=== PATIENT | female | born 2000 | race Hispanic/Latino ===

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

== ENCOUNTER 2022-08-05 13:47 | Emergency (ER) | payer OTHER, SELFPAY ==
--- NOTE | ~2022-08-05 | CT_ITS ---
EXAMINATION: CT abdomen pelvis w con DATE: 08/05/2022 15:12 INDICATION: Mid abdominal pain, nausea, vomiting, diarrhea TECHNIQUE: Computed tomography (CT) of the abdomen and pelvis was performed with 100 CC Omnipaque 350 intravenous contrast. Automated exposure control and iterative reconstruction technique were employe d. Exam dose: 248.49 mGy-cm total exam DLP. COMPARISON: None. FINDINGS: The lung bases are clear. Normal heart size. No pericardial or pleural effusion. The liver, spleen, gallbladder, bile ducts, pancreas, pancreatic duct, and adrenal glands and kidneys appear normal. No urinary tract calculus or hydroureteronephrosis. The uterus, adnexal areas and uri nary bladder are unremarkable. Normal caliber of the abdominal aorta. No intraperitoneal or retroperitoneal or pelvic mass lesion or adenopathy or ascites. Normal appendix. There are fluid levels in the small and large bowel without evidence of bowel wall t hickening or abnormal dilatation, pneumatosis or intraperitoneal free air. Included skeletal structures are unremarkable. IMPRESSION: Fluid levels of small bowel and large bowel suggesting enterocolitis Normal appendix Reviewed, dictated and finalized at Location A. Reviewed, dictated and finalized at location B. IMPRESSION: Fluid levels of small bowel and large bowel suggesting enterocolit is Normal appendix
[2022-08-05 13:49] VITALS: BP 126/77; PULSE 91; RESP 16; TEMP 36.3; O2SAT 100
[2022-08-05 14:02] LABS: Basophils Absolute Auto 0.1 K/mm3 (0.0-0.1); Basophils Percent Auto 0.9 % (0.2-1.2); Eosinophils Absolute Auto 0.4 K/mm3 (0-0.3); Eosinophils Percent Auto 5.9 % (0-4.4); Hemoglobin 11.6 g/dL (12.0-15.0); Immature Granulocyte Absolute 0.01 K/mm3 (0.00-0.031); Immature Granulocyte Percent A 0.2 % (0-0.5); Lymphocytes Absolute Auto 2.67 K/mm3 (0.9-3.2); Lymphocytes Percent Auto 41.3 % (18.3-44.2); Mean Corpuscular HGB Conc 31.4 g/dl (32-36); Mean Corpuscular Hemoglobin 24.1 pg (26-34); Mean Corpuscular Volume 76.9 fl (80-100); Mean Platelet Volume 9.9 fl (7.4-10.4); Monocytes Absolute Auto 0.4 K/mm3 (0.1-0.6); Monocytes Percent Auto 6.6 % (2.6-8.5); Neutrophils Absolute Auto 2.9 K/mm3 (1.3-6.7); Neutrophils Percent Auto 45.1 % (45.5-73.1); Platelet Count Result 334 k/mm3 (150-375); Red Blood Count 4.81 M/mm3 (4.2-5.4); Red Cell Distribution Width 13.8 % (11.5-14.5); White Blood Count 6.5 K/mm3 (4.5-10.0)
[2022-08-05 14:16] LABS: Alanine Aminotransferase 20 U/L (6-35); Albumin Level 4.8 g/dL (3.7-5.6); Alkaline Phosphatase 62 U/L (45-116); Anion Gap 10 mmol/L (8-16); Aspartate Amino Transferase 30 U/L (14-36); Bilirubin,Total 0.5 mg/dL (0.2-1.3); Blood Urea Nitrogen 8 mg/dL (8-21); Calcium 9.6 mg/dL (8.9-10.7); Carbon Dioxide 23 mmol/L (22-30); Chloride 104 mmol/L (98-107); Estimated CRCL calculation 89 ml/min; Estimated Glomerular Filt Rate > 60; Glucose 93 mg/dL (65-110); Lipase 57 U/L (23-300); Potassium 3.7 mmol/L (3.4-5.0); Sodium 137 mmol/L (134-143)
--- NOTE | 2022-08-05 14:25 | ED.ABDPAIN ---
HPI - Abdominal Pain General Chief Complaint: Abdominal Pain Stated Complaint: abd pain Time Seen by Provider: 08/05/22 14:15 History of Present Illness HPI narrative: This is a 21-year-old female presents to the ED with chief complaint of periumbilical abdominal pain radiating to the right lower quadrant x1 to 2 hours. She reports nausea/vomiting/diarrhea for the past hour as well. No known sick contacts. Patient does note that the pain becomes generalized at times as well. Reports about 3 episodes of vomiting and a couple episodes of diarrhea. Denies hematemesis or bloody stools. Denies chest pain, shortness of breath, fevers. No past abdominal surgical Hx Related Data Home Medications Medication Instructions Recorded Confirmed norethindrone 1 mg-ethinyl tablet 07/05/20 estradiol 20 mcg (21)-iron 75 mg (7) tablet Allergies Allergy/AdvReac Type Severity Reaction Status Date / Time No Known Allergies Allergy Verified 04/09/21 05:47 Review of Systems Review of Systems: CONSTITUTIONAL: Denies fever, chills, or sweats. EYES: Denies visual changes, redness, or discharge. ENT: Denies rhinorrhea, congestion, sore throat, or otalgia. CARDIOVASCULAR: Denies chest pain, palpitations, or edema. RESPIRATORY: Denies cough or dyspnea. GASTROINTESTINAL: Endorses abdominal pain, nausea, vomiting, and diarrhea. Denies hematemesis or bloody stools. GENITOURINARY: Denies dysuria or hematuria. SKIN: Denies rash or itching. MUSCULOSKELETAL: Denies back pain, joint pain, or myalgia. NEUROLOGIC: Denies headache, numbness, dizziness, or weakness. PSYCHIATRIC: Denies anxiety or depression. PMFSH Past Medical History Medical History Benign neoplasm of foot surgically excised at age 8 years. Surgical History Surgical History H/O foot surgery Social History Social History Smoking status: Never smoker Substance use: never Exam Narrative: GENERAL: Well-appearing, well-nourished, and in no acute distress. HEAD: Normocephalic, atraumatic. EYES: PERRLA and EOMI. ENT: Nares clear, no rhinorrhea or epistaxis. Mucous membranes moist. Oropharynx without tonsillar hypertrophy exudate or other lesions. NECK: Supple. No adenopathy or masses. CHEST: No respiratory distress. Clear to auscultation. No wheezes rales or rhonchi HEART: Regular rate and rhythm. No murmur heard. Normal peripheral pulses. ABDOMEN: Diffuse tenderness, Somewhat worse in the right lower quadrant. Soft, nondistended, normal active bowel sounds. Negative peritoneal signs. Negative Muhammad sign EXTREMITIES: Normal range of motion. No edema. SKIN: Warm, dry, no rash. NEURO: Alert and oriented x3. No focal deficits. PSYCH: Normal mood and affect. Course Course Emergency Course: reeval: pt feeling much better after pain meds, zofran and fluids Vital Signs Vital signs: Vital Signs Temperature 97.4 F L 08/05/22 13:49 Pulse Rate 91 08/05/22 13:49 Respiratory Rate 16 08/05/22 13:49 Blood Pressure 126/77 08/05/22 13:49 Pulse Oximetry 100 08/05/22 13:49 Oxygen Delivery Room Air 08/05/22 13:49 Temperature 98.2 F 08/05/22 15:57 Pulse Rate 74 08/05/22 15:57 Respiratory Rate 16 08/05/22 15:57 Blood Pressure 110/72 08/05/22 15:57 Pulse Oximetry 100 08/05/22 15:57 Oxygen Delivery Room Air 08/05/22 13:49 MDM - Abdominal Pain MDM Narrative Medical decision making narrative: This is a 21-year-old female presents the ED with chief complaint of abdominal pain and N/V/D beginning just prior to arrival. Patient did complain of some migrating periumbilical to right lower quadrant pain on initial interview. Exam reveals generalized tenderness with moderate right lower quadrant tenderness. DDx of gastroenteritis, colitis, appendic
[2022-08-05] MEDS: ONDANSETRON INJ 4 MG/2 ML VIAL IV PUSH (14:54)
[2022-08-05] MEDS: MORPHINE SULFATE (*CRX) 4 MG/ML INJ IV PUSH (14:54)
[2022-08-05] MEDS: SODIUM CHLORIDE 0.9% IV 1,000 ML 999 ML IV CONT (14:54)
[2022-08-05 15:38] LABS: Appearance Urine Clear (Clear); Bacteria Urine 3+ /hpf; Bilirubin Urine Negative (Negative); Blood Urine Negative (Negative); Color Urine Yellow (Yellow); Glucose Urine UA Negative (Negative); Ketones Urine Negative (Negative); Leukocyte Esterase Ur 1+ LEU/UL (Negative); Nitrate Urine Negative (Negative); Non Pathogenic Casts 0-2; Protein Urine Negative (Negative); RBC Urine 0-2 /hpf (0-2); Specific Grav Ur 1.021 (1.001-1.035); Squamous Epithelial Cell Urine Many /hpf (Few); Urobilinogen Urine 0.2 mg/dL (<2.0); pH Urine 6.5 (5.0-9.0)
[2022-08-05 15:40] LABS: Add Urine Microscopic? YES
[2022-08-05 15:57] VITALS: BP 110/72; PULSE 74; RESP 16; TEMP 36.8; O2SAT 100
== END 2022-08-05 16:01 | disposition home or self-care (01) ==
PROVIDERS: Emergency Medicine; Emergency Provider Physician Assistant
DX: K52.9 Noninfective gastroenteritis and colitis, unspecified (principal)
CPT/HCPCS: 36415; 74177; 80053; 81001; 81025; 83690; 85025; 87086; 96361; 96374; 96375; 99284; J2270; J2405; J7030; Q9967

== ENCOUNTER 2023-06-03 13:48 | Outpatient (CLI) | payer BC, SELFPAY ==
--- NOTE | ~2023-06-03 | XR_ITS ---
EXAMINATION: XR chest 2V 06/03/2023 14:12 INDICATION: Generalized hyperhidrosis PROCEDURE: 2 view chest COMPARISON: Comparison to multiple prior studies sequentially, with oldest reviewed study dated 06/04. FINDINGS: The lungs are clear. The cardiomediastinal silhouette is within normal limits. There are no pleural effusions. There is no pneumothorax suspected. IMPRESSION: 1: NO ACUTE CARDIOPULMONARY DISEASE. Reviewed, dictated and finalized at location L. AL DISPLAY MANAGER
--- NOTE | ~2023-06-03 | XR_ITS ---
EXAMINATION: XR sinus min 3V DATE: 06/03/2023 14:12 INDICATION: Fever, unspecified. Right-sided sinus pain. TECHNIQUE: 5 views of the paranasal sinuses were obtained. COMPARISON: None. FINDINGS: There is rightward deviation of the nasal septum. No fracture. There is mucosal thickening in right maxillary sinus. IMPRESSION: 1. Mucosal thickening in right maxillary sinus. 2. Rightward deviation of the nasal septum. Reviewed, dictated and finalized at location E. ALT DAUBER
--- NOTE | ~2023-06-03 | XR_ITS ---
XR abdomen/kub 1V 06/03/2023 14:13 INDICATION: Fever. Diarrhea. TECHNIQUE: KUB COMPARISON: None FINDINGS: Bowel gas pattern is normal. Bowel gas pattern is nonobstructive. There is no evidence of f ree air, mass, organomegaly, ascites or obstruction. No abnormal calculi are seen. The bones appear intact. IMPRESSION: 1: No acute abdominal abnormality identified. Reviewed, dictated and finalized at location L. RHANGER
== END 2023-06-03 13:49 | disposition home or self-care (01) ==
PROVIDERS: PCP Family Medicine; Visit Provider Family Medicine
DX: R61 Generalized hyperhidrosis (principal); R50.9 Fever, unspecified; R19.7 Diarrhea, unspecified; J34.2 Deviated nasal septum
CPT/HCPCS: 70220; 71046; 74018

== ENCOUNTER 2023-07-07 01:45 | Day surgery (SDC) | payer BC, SELFPAY ==
[2023-06-15 10:25] VITALS: BMI 21.2
--- NOTE | 2023-07-05 11:34 | PC.NURSE ---
Patient called regarding upcoming procedure. Reviewed preop instructions, appointment times, and procedure prep.
[2023-07-07 11:40] VITALS: BP 114/78; PULSE 102; RESP 18; TEMP 36.3; O2SAT 100; BMI 20.9
[2023-07-07] MEDS: LACTATED RINGERS 1,000 ML 150 ML IV CONT (11:55)
--- NOTE | 2023-07-07 12:34 | WPDANESEPPF ---
Anes - Initial Pre Proc Eval Procedure: Operation Date: 07/07/23 13:00 Proposed Procedures p Colonoscopy - Cristopher Geronimo MD Date/Time: 07/07/23 12:34 Surgeon: Cristopher Geronimo MD Pre Op Diagnosis: abdominal pain,anemia,melena Patient Data Age: 22 Gender: F Height: 1.65 m Weight: 57.1 kg Last Vital Signs Temp 36.3 C L 07/07/23 11:40 Pulse 102 H 07/07/23 11:40 Resp 18 07/07/23 11:40 BP 114/78 07/07/23 11:40 Pulse Ox 100 07/07/23 11:40 O2 Del Method Room Air 07/07/23 11:40 Allergies Allergy/AdvReac Type Severity Reaction Status Date / Time No Known Allergies Allergy Verified 07/07/23 11:45 Home Medications Medication Instructions Recorded Confirmed Type norethindrone 1 mg-ethinyl 1 tablet PO DAILY 07/05/20 07/07/23 History estradiol 20 mcg (21)-iron 75 mg (7) tablet fexofenadine 60 mg-pseudoephedrine 1 tablet PO Q12H PRN sinus 06/04/23 07/07/23 Rx ER 120 mg tablet,ext.release,12 hr symptoms #30 tabs (Darlene-D 12 Hour) Patient hx anesthesia problems: none Family hx anesthesia problems: none Results Review: All pre-operative results and documents have been reviewed as part of the pre-operative evaluation. [facility] Past Medical History Medical History Benign neoplasm of foot surgically excised at age 8 years. Surgical History Surgical History H/O foot surgery Social History Social History Social History: Single Smoking status: Never smoker Second hand tobacco smoke exposure: No Alcohol intake: never Substance use: never Substance use type: does not use Do You Feel Safe in your Home?: Yes Lack of Transportation: No Lack of Food: Never True Current Housing: I Have Housing Concerned About Future Housing: No Difficulty Paying Gas/Electric Bills: No Difficulty Paying for Meds: No Currently Unemployed: No Education: Don't Know Difficulty w/ Childcare or Family Care: No Living arrangements: with family Occupation/Education: student Additional occupation/education comments: Pt goes to school full-time. Gender identity (if verbalized by the patient): Female Sexual Orientation (if Verbalized by the Patient): Straight or Heterosexual Anes - Eval Final PreProcedure Day of Procedure 07/07/23 12:34 Patient weight: normal Heart: regular rate and rhythm Lungs: clear to auscultation Airway: Mallampati scale class 1 Neurological: alert and oriented Last oral intake: >/= 8 hours ASA classification: I Emergent: no Anesthetic plan: proceed Anesthesia type and monitoring: general GIVS and standard monitoring Results Review: All pre-operative results and documents have been reviewed as part of the pre-operative evaluation. Informed Consent: The patient's anesthetic plan and its attendant risks and benefits were discussed with the patient/family/POA. Questions were solicited and answers provided to the satisfaction of the patient/family/POA.
--- NOTE | 2023-07-07 12:56 | PM.HPGS ---
History of Present Illness History of Present Illness Consent: Risks, benefits, and alternatives have been discussed and questions answered. Patient agrees to proceed with procedure. Chief complaint: abdominal pain,anemia,melena Narrative: Giacomo Granados is a 22 year old female with 2 months of diarrhea, never had colonoscopy Review of Systems Constitutional: Constitutional: Denies headache(s) and Denies weakness Eyes: Eyes: Denies blurry vision ENT: Reports Normal hearing present, Denies headache(s) and Denies neck pain Cardiovascular: Cardiovascular: Denies chest pain and Denies dyspnea Respiratory: Respiratory: Denies dyspnea Gastrointestinal: Gastrointestinal: Reports no additional gastrointestinal complaints Genitourinary: Genitourinary: Denies dysuria Musculoskeletal: Musculoskeletal: Denies neck pain Integumentary/Breasts: Skin/Breast: Denies dry skin Neurologic: Reports Normal hearing present, Denies headache(s) and Denies weakness Psychiatric: Psychiatric: Denies anxiety Endocrine: Endocrine: Denies change in body appearance Hematologic/Lymphatic: Hematologic/Lymphatic: Denies easy bleeding Allergic/Immunologic: Allergic/Immunologic: Denies urticaria PMFSH Past Medical History Medical History Benign neoplasm of foot surgically excised at age 8 years. Surgical History Surgical History H/O foot surgery Social History Social History Social History: Single Smoking status: Never smoker Second hand tobacco smoke exposure: No Alcohol intake: never Substance use: never Substance use type: does not use Do You Feel Safe in your Home?: Yes Lack of Transportation: No Lack of Food: Never True Current Housing: I Have Housing Concerned About Future Housing: No Difficulty Paying Gas/Electric Bills: No Difficulty Paying for Meds: No Currently Unemployed: No Education: Don't Know Difficulty w/ Childcare or Family Care: No Living arrangements: with family Occupation/Education: student Additional occupation/education comments: Pt goes to school full-time. Gender identity (if verbalized by the patient): Female Sexual Orientation (if Verbalized by the Patient): Straight or Heterosexual Meds Home Medications and Allergies Home Medications Medication Instructions Recorded Confirmed Type norethindrone 1 mg-ethinyl 1 tablet PO DAILY 07/05/20 07/07/23 History estradiol 20 mcg (21)-iron 75 mg (7) tablet fexofenadine 60 mg-pseudoephedrine 1 tablet PO Q12H PRN sinus 06/04/23 07/07/23 Rx ER 120 mg tablet,ext.release,12 hr symptoms #30 tabs (Darlene-D 12 Hour) Allergies Allergy/AdvReac Type Severity Reaction Status Date / Time No Known Allergies Allergy Verified 07/07/23 11:45 Vital Signs Vital Signs - 24 hr 07/07/23 11:40 Temperature 97.3 F L Pulse Rate 102 H Respiratory Rate 18 Blood Pressure 114/78 Pulse Oximetry 100 Oxygen Delivery Room Air Exam Const: General: comfortable and no acute distress HENMT: Face/Nose/Sinus: Normal nares present Eyes: General: appearance normal, both eyes and all related structures Neck: Neck: no JVD Resp: Auscultation: clear to auscultation bilaterally Cardio: Rate: regular rate Rhythm: regular rhythm GI: Inspection: non-distended GI Palp: Yes Soft to palpation Skin: General skin exam: normal color Neuro: General: gait normal Speech: normal speech Extrem: General: normal to inspection Psych: Mental Status: mental status grossly normal Assessment and Plan Assessment and plan (1) Diarrhea: Qualifiers: Diarrhea type: unspecified type Qualified Code(s): R19.7 - Diarrhea, unspecified Code(s): R19.7 - Diarrhea, unspecified Status: Acute Assessment and Plan: colonoscopy, consid
[2023-07-07 13:14] VITALS: BP 106/68; PULSE 97; RESP 24; O2SAT 100
[2023-07-07 13:24] VITALS: BP 109/72; PULSE 97; RESP 24; O2SAT 100
[2023-07-07 13:34] VITALS: BP 111/68; PULSE 77; RESP 21; O2SAT 100
== END 2023-07-07 13:39 | disposition home or self-care (01) ==
PROVIDERS: PCP Family Medicine; Visit Provider Internal Medicine Gastroenterology
PROC: 0DJD8ZZ Inspection of Lower Intestinal Tract, Via Natural or Artificial Opening Endoscopic (ICD-10-PCS; CPT 45378; principal; 2023-07-07 13:00)
DX: K63.89 Other specified diseases of intestine (principal)
CPT/HCPCS: 45380; 88305; J2704; J7120

== ENCOUNTER 2023-09-08 11:11 | Outpatient (CLI) | payer BC, SELFPAY ==
[2023-09-08 11:35] LABS: Basophils Percent Auto 0.3 % (0.2-1.2); Eosinophils Percent Auto 0.3 % (0-4.4); Hematocrit 36.9 % (37.0-47.0); Hemoglobin 11.4 g/dL (12.0-15.0); Immature Granulocyte Absolute 0.05 K/mm3 (0.00-0.031); Immature Granulocyte Percent A 0.4 % (0-0.5); Lymphocytes Absolute Auto 0.93 K/mm3 (0.9-3.2); Lymphocytes Percent Auto 7.9 % (18.3-44.2); Mean Corpuscular HGB Conc 30.9 g/dl (32-36); Mean Corpuscular Hemoglobin 23.4 pg (26-34); Mean Corpuscular Volume 75.8 fl (80-100); Mean Platelet Volume 9.9 fl (7.4-10.4); Monocytes Absolute Auto 0.8 K/mm3 (0.1-0.6); Monocytes Percent Auto 6.8 % (2.6-8.5); Neutrophils Absolute Auto 9.9 K/mm3 (1.3-6.7); Neutrophils Percent Auto 84.3 % (45.5-73.1); Platelet Count Result 208 k/mm3 (150-375); Red Blood Count 4.87 M/mm3 (4.2-5.4); Red Cell Distribution Width 15.2 % (11.5-14.5); White Blood Count 11.8 K/mm3 (4.5-10.0)
[2023-09-08 11:46] LABS: Anisocytosis 1+; Hypochromasia 1+; Microcytosis 1+ (NORMAL); Platelet Estimate Adequate (Adequate); Schistocytes None Seen
[2023-09-08 16:42] LABS: Iron 55 ug/dL (37-170)
[2023-09-08 16:49] LABS: Alanine Aminotransferase 16 U/L (6-35); Albumin Level 4.7 g/dL (3.5-5.1); Alkaline Phosphatase 57 U/L (38-126); Anion Gap 11 mmol/L (4-12); Aspartate Amino Transferase 24 U/L (14-36); Bilirubin,Total 0.4 mg/dL (0.2-1.3); Blood Urea Nitrogen 7 mg/dL (7-17); Calcium 9.6 mg/dL (8.4-10.2); Carbon Dioxide 21 mmol/L (22-30); Chloride 104 mmol/L (98-107); Estimated Glomerular Filt Rate > 60; Glucose 97 mg/dL (65-110); Lactate Dehydrogenase 156 U/L (120-246); Potassium 3.7 mmol/L (3.4-5.0); Sodium 136 mmol/L (137-145)
[2023-09-08 16:58] LABS: Percent Iron Saturation 11 % (20-50)
[2023-09-08 17:16] LABS: Ferritin 7.39 ng/mL (6.24-137)
[2023-09-08 17:53] LABS: Folic Acid 3.1 ng/mL (2.76->20)
[2023-09-13 03:03] LABS: Methylmalonic Acid 104 nmol/L (87-318)
[2023-09-14 14:48] LABS: Soluble Transferrin Receptor 1.61 mg/L (0.76-1.76)
== END 2023-09-08 11:12 | disposition home or self-care (01) ==
LOC: ANHLAB 11:14
PROVIDERS: Nurse Practitioner Family; PCP Family Medicine; Visit Provider Internal Medicine Hematology & Oncology
DX: D50.9 Iron deficiency anemia, unspecified (principal)
CPT/HCPCS: 36415; 80053; 82607; 82728; 82746; 83540; 83550; 83615; 83921; 84238; 85025

== ENCOUNTER 2023-09-13 13:24 | Outpatient (CLI) | payer BC, SELFPAY ==
[2023-09-13 21:07] LABS: Influenza A QL RT-PCR Negative (Negative); Influenza B QL RT-PCR Negative (Negative); SARS-CoV-2 RNA PCR Negative (Negative)
== END 2023-09-13 13:25 | disposition home or self-care (01) ==
LOC: ANHLAB 13:26
PROVIDERS: PCP Family Medicine; Visit Provider Physician Assistant
DX: J02.9 Acute pharyngitis, unspecified (principal); Z20.822 Contact with and (suspected) exposure to COVID-19
CPT/HCPCS: 87636

== ENCOUNTER 2023-09-28 00:14 | Day surgery (SDC) | payer BC, SELFPAY ==
[2023-09-14 12:56] VITALS: BMI 21.5
--- NOTE | 2023-09-28 12:59 | P.PNAN_ITS ---
Anes - Initial Pre Proc Eval Procedure: Operation Date: 09/28/23 14:00 Proposed Procedures p Esophagogastroduodenoscopy - Cristopher Geronimo MD Date/Time: 09/28/23 12:59 Surgeon: Cristopher Geronimo MD Pre Op Diagnosis: Anemia, Diarrhea Patient Data Age: 22 Gender: F Height: 1.63 m Weight: 57 kg Allergies Allergy/AdvReac Type Severity Reaction Status Date / Time No Known Allergies Allergy Verified 09/20/23 13:00 Home Medications Medication Instructions Recorded Confirmed Type norethindrone 1 mg-ethinyl 1 tablet PO DAILY 07/05/20 09/20/23 History estradiol 20 mcg (21)-iron 75 mg (7) tablet fexofenadine 60 mg-pseudoephedrine 1 tablet PO Q12H PRN sinus 06/04/23 09/20/23 Rx ER 120 mg tablet,ext.release,12 hr symptoms #30 tabs (Darlene-D 12 Hour) colestipol 1 gram tablet 1 g PO BID 1 month #60 tabs 09/02/23 09/20/23 Rx amoxicillin 875 mg-potassium 1 tablet PO BID #20 tabs 09/14/23 09/20/23 Rx clavulanate 125 mg tablet dexamethasone 4 mg tablet 4 mg PO BID #6 tabs 09/14/23 09/20/23 Rx ferrous sulfate 325 mg (65 mg 325 mg PO DAILY 09/14/23 09/20/23 History iron) tablet (FeroSul) Patient hx anesthesia problems: none Family hx anesthesia problems: none Results Review: All pre-operative results and documents have been reviewed as part of the pre- operative evaluation. [facility] Past Medical History Medical History Benign neoplasm of foot surgically excised at age 8 years. Celiac disease Surgical History Surgical History H/O foot surgery Social History Social History Social History: Single Smoking status: Never smoker Second hand tobacco smoke exposure: No Alcohol intake: never Substance use: never Substance use type: does not use Do You Feel Safe in your Home?: Yes Lack of Transportation: No Lack of Food: Never True Current Housing: I Have Housing Concerned About Future Housing: No Difficulty Paying Gas/Electric Bills: No Difficulty Paying for Meds: No Currently Unemployed: No Education: Don't Know Difficulty w/ Childcare or Family Care: No Living arrangements: with family Occupation/Education: student Additional occupation/education comments: Pt goes to school full-time. Gender identity (if verbalized by the patient): Female Sexual Orientation (if Verbalized by the Patient): Straight or Heterosexual Spiritual care concerns: No Anes - Eval Final PreProcedure Day of Procedure 09/28/23 12:59 Patient weight: normal Heart: regular rate and rhythm Lungs: clear to auscultation Airway: Mallampati scale class II Neurological: alert and oriented Last oral intake: >/= 8 hours ASA classification: II Emergent: no Anesthetic plan: proceed Anesthesia type and monitoring: general GIVS and standard monitoring Results Review: All pre-operative results and documents have been reviewed as part of the pre- operative evaluation. Informed Consent: The patient's anesthetic plan and its attendant risks and benefits were discussed with the patient/family/POA. Questions were solicited and answers provided to the satisfaction of the patient/family/P
[2023-09-28 13:01] VITALS: BP 112/63; PULSE 83; RESP 18; TEMP 36.4; O2SAT 100; BMI 21.8
[2023-09-28] MEDS: LACTATED RINGERS 1,000 ML 150 ML IV CONT (13:05)
--- NOTE | 2023-09-28 13:44 | WPDHPUPDATE1 ---
History and Physical Update Update Date/Time: 09/28/23 13:44 History and Physical has been reviewed, including an updated exam of the patient. There are NO changes in the patient's condition. Risks, benefits, and alternatives have been discussed and questions answered. Patient agrees to proceed with procedure.
[2023-09-28 13:54] VITALS: BP 93/50; PULSE 78; RESP 19; O2SAT 99
[2023-09-28 14:04] VITALS: BP 98/40; PULSE 77; RESP 21; O2SAT 100
[2023-09-28 14:14] VITALS: BP 98/62; PULSE 75; RESP 20; O2SAT 100
== END 2023-09-28 14:18 | disposition home or self-care (01) ==
PROVIDERS: PCP Family Medicine; Visit Provider Internal Medicine Gastroenterology
PROC: 0DJ08ZZ Inspection of Upper Intestinal Tract, Via Natural or Artificial Opening Endoscopic (ICD-10-PCS; CPT 43235; principal; 2023-09-28 14:00)
DX: K29.80 Duodenitis without bleeding (principal); K90.0 Celiac disease; D50.9 Iron deficiency anemia, unspecified
CPT/HCPCS: 43239; 88305; J2704; J7120

== ENCOUNTER 2024-07-11 23:11 | Emergency (ER) | payer BC, SELFPAY ==
--- OUTSIDE RECORDS SUMMARY | 2024-07-11 23:14 | XMS_ITS | Clinical Summary ---
Author Organization [facility] Address [address] [place] [id number] Care Team Providers Care Uppers Edge Burnisher Name Role Phone None, Provider MD Primary Care Provider Unavaila ble Allergies No known active allergies Social History Tobacco Use Types Packs/Day Years Used Date Smoking Tobacco: Never Smokeless Tobacco: Never Alcohol Use Standard Drinks/Week Comments Never 0 (1 standard drink = 0.6 oz pur e alcohol) Comments No Sex and Gender Information Value Date Recorded Sex Assigned at Not on file Legal Sex Female 5:05 PM CDT Gender Identity Not on file Sexual Orientation Not on file Last Filed Vital Signs Vital Sign Reading Time Taken Comments Blood Pressure 110/73 08/18/2021 5:18 PM CDT Pulse 98 08/18/2021 5:18 PM CDT Temperature 36.4 C (97.5 F) 08/18/2021 5:18 PM CDT Respiratory Rate 18 08/18/2021 5:18 PM CDT Oxygen Saturation 100% 08/18/2021 5:18 PM CDT Inhaled Oxygen Concentration - - Weight 56.7 kg (125 lb) 08/18/2021 5:21 PM CDT Height 162.6 cm (5' 4 ) 08/18/2021 5:21 PM CDT Body Mass Index 21.46 08/18/2021 5:21 PM CDT Plan of Treatment Health Maintenance Due Date Last Done Comments Cervical Cancer Screening Pap Smear (Age 21 to 29) Every 3 Years 2002 Cervical Cancer Screening 2002 Annual Physical 2005 Meningococcal B Vaccine (1 of 2 - Standard) 2018 HPV Vaccines (3 - 3-dose series) 02/29/2020 12/07/2019, 07/01/2018 Hepatitis C 2020 COVID-19 Vaccine ( season) 2024 DTaP, Tdap and Td Vaccines (7 - Td or Tdap) 02/02/2024 02/01/2014, 12/01/2007, 05/22/2004, Additional history exists Influenza Adult (#1) 2024 07/01/2018, 02/02/20 14 Hepatitis B Vaccines Completed 07/06/2003, 07/06/2003, 04/06/2003, Additional history exists Pneumococcal Vaccine: Pediatrics (0 to 5 Years) and At-Risk Patients (6 to 64 Years) Aged Out 05/22/2004, 07/06/2003, 04/06/2003, Additional history exists No longer eligible based on patient's age to complete this topic Meningococcal Vaccine Completed 12/07/2019, 014 RSV Immunizations Under 20 Months Aged Out No longer eligible based on patient's age to complete this topic Insurance ALLIED BENEFITS Care Teams Uppers Edge Burnisher Relationship Specialty Start Date End Date None, Provider, PCP - General 08/18/21
--- OUTSIDE RECORDS SUMMARY | 2024-07-11 23:14 | XMS_ITS | Clinical Summary ---
Author Organization [facility] Jackie Vazquez Address [address] [place] [address] Care Team Providers Care Medical Assistant Cardiology Name Role Phone Suzi Rivero MD Primary Care Provider [phone] Allergies No known active allergies Medications ferrous fumarate (FERRETTS) 325 mg (106 mg iron) Tablet Take 325 mg by mouth daily. Active CYANOCOBALAMIN, VITAMIN B-12, ORAL Take by mouth daily. Active colestipoL (COLESTID) 1 gram tablet Take 1 Tablet by mouth 2 times daily. 09/02/2023 Active budesonide (ENTOCORT EC) 3 mg Enteric Coated 24 hour capsule Take 1 Capsule by mouth daily. 09/02/2023 Active Norethindrn A-E estradiol-Iron (Satinder Fe 1.5/30, 28,) 1.5 mg-30 mcg (21)/75 mg (7) tablet Take 1 Tablet by mouth daily. 04/07/2022 Active Active Problems No known active problems Encounters Date Type Department Care Team Description 06/27/2024 External Device Data [facility] ABSTRACTION Provider, Abstract 06/06/2024 External Device Data [facility] ABSTRACTION Provider, Abstract 05/31/2024 External Device Data [facility] ABSTRACTION Provider, Abstract 05/31/2024 External Device Data [facility] ABSTRACTION Provider, Abstract 04/20/2024 Telephone [facility] Oncology and Hematology - [place] [address] [address] Luis Antonio Adame MD lab work for appointment from Last 3 Months Family History Medical History Relation Name Comments No Known Problems Father Lung Cancer Maternal Grandfather No Known Problems Mother Relation Name Status Comments Father Alive Maternal Grandfather Mother Alive Social History Tobacco Use Types Packs/Day Years Used Date Smoking Tobacco: Never Tobacco Cessation:Counseling Given: Not Answered Alcohol Use Standard Drinks/Week Comments Never 0 (1 standard drink = 0.6 oz pur e alcohol) Comments No Sex and Gender Information Value Date Recorded Sex Assigned at Not on file Legal Sex Female 11:20 AM CDT Gender Identity Not on file Sexual Orientation Not on file Last Filed Vital Signs Vital Sign Reading Time Taken Comments Blood Pressure 106/86 12/21/2023 1:33 PM CDT Pulse 62 12/21/2023 1:33 PM CDT Temperature 36.3 C (97.4 F) 12/21/2023 1:33 PM CDT Respiratory Rate 14 12/21/2023 1:33 PM CDT Oxygen Saturation 97% 12/21/2023 1:33 PM CDT Inhaled Oxygen Concentration - - Weight 58.6 kg (129 lb 3.2 oz) 12/21/2023 1:33 P M CDT Height 162.6 cm (5' 4 ) 09/08/2023 10:28 AM CDT Body Mass Index 22.18 09/08/2023 10:28 AM CDT Plan of Treatment Upcoming Encounters Date Type Department Care Team (Late st Contact Info) Description 09/28/2024 3:45 PM CDT Office Visit [facility] Oncology and Hematology - [place] [address] [facility] [address] [place] [address] Luis Antonio Adame MD [address] [facility] [address] [place] [address] Health Maintenance Due Date Last Done Comments CHLAMYDIA SCREENING (ANNUAL) 11-24 YEARS 2013 HPV VACCINES (3 - 3-dose series) 02/29/2020 12/07/19, 07/01/2018 CERVICAL CANCER SCREENING 11/04/2023 INFLUENZA VACCINE (#1) 2023 07/01/2018, 2013 DTAP/TDAP/TD VACCINES (7 - T d or Tdap) 02/02/2024 02/01/2014, 12/01/2007, 05/22/2004, Additional history exists Preventative Visit- Commercial 05/10/2024 0 12/07/2019, 07/01/2018, 01/05/2017, Additional history exists HEPATITIS B VACCINES Completed 07/06/2003, 04/06/2003, 01/04/2003, Additional history exists Insurance [employer] P[employer] Care Teams Medical Assistant Cardiology Relationship Specialty Start Date End Date Suzi Rivero MD [address] [facility] [address] [place] [address] PCP - General Family Practice 08/26/23
[2024-07-11 23:18] VITALS: BP 123/86; PULSE 78; RESP 20; TEMP 36.4; O2SAT 100
--- OUTSIDE RECORDS SUMMARY | 2024-07-12 03:33 | XMS_ITS | Clinical Summary ---
Author Organization [facility] Address [address] [place] [id number] Care Team Providers Care Field Applications Specialist Name Role Phone None, Provider MD Primary [...] this topic Insurance ALLIED BENEFITS Care Teams Field Applications Specialist Relationship Specialty Start Date End Date None, Provider, PCP - General 08/18/21
--- OUTSIDE RECORDS SUMMARY | 2024-07-12 03:34 | XMS_ITS | Clinical Summary ---
Author Organization [facility] Jackie Vazquez Address [address] [place] [address] Care Team Providers Care Ophthalmologist Retina Specialist Name Role Phone Suzi Rivero MD Primary Care Provider +1- [phone] Allergies No known active allergies Medications ferrous [...] Data [place] ABSTRACTION Provider, Abstract 04/20/2024 Telephone [facility] Oncology and Hematology - [place] [address] [address] Luis Antonio Adame MD lab [...] Description 09/28/2024 3:45 PM CDT Office Visit [facility] Oncology and Hematology - [place] [address] [facility] [address] [place] [address] Luis Antonio Adame MD [address] [facility] [address] [place] [address] Health Maintenance Due Date Last [...] 07/06/2003, 04/06/2003, 01/04/2003, Additional history exists Insurance Compendium/TRUE [employer] PPO Care Teams Ophthalmologist Retina Specialist Relationship Specialty Start Date End Date Suzi Rivero MD [address] [facility] [address] [place] [address] PCP - General Family Practice 08/26/23
== END 2024-07-11 23:59 | disposition left against medical advice (07) ==
LOC: ANHED 07-12 03:31
PROVIDERS: PCP Family Medicine
DX: R10.9 Unspecified abdominal pain (principal)
CPT/HCPCS: 99199

== ENCOUNTER 2024-08-01 17:43 | Emergency (ER) | payer BC, SELFPAY ==
[2024-08-01 17:55] VITALS: BP 127/77; PULSE 96; RESP 20; TEMP 36.5; O2SAT 100
[2024-08-01] MEDS: IBUPROFEN 600 MG TABLET PO (18:18)
[2024-08-01] MEDS: ACETAMINOPHEN 500 MG TABLET 1000 MG PO (18:18)
--- NOTE | 2024-08-01 18:51 | ED.HEATRA ---
HPI - Head Injury General Chief complaint: Head Injury Stated complaint: Head injury-hit with car door ?LOC Time Seen by Provider: 08/01/24 18:01 History of Present Illness HPI Narrative: 23-year-old female presenting after a minor injury outside by her car. She opened her car door and the wind picked up and then closed the car door on her right-sided forehead. She did not lose conscious. Patient denies any symptoms at this time but does have a scalp hematoma the right side. No vision changes, nausea, vomiting, weakness, fatigue neuropathy. Was otherwise in her normal state of health. Not any kind of blood thinners. No history of any seizure disorder. Related Data Home Medications ?Medication ?Instructions ?Recorded ?Confirmed ?Last Taken ?Type norethindrone 1 mg-ethinyl 1 tablet PO DAILY 07/05/20 07/13/24 Unknown History estradiol 20 mcg (21)-iron 75 mg (7) tablet ferrous sulfate 325 mg (65 mg 325 mg PO DAILY 09/14/23 07/13/24 Unknown History iron) tablet (FeroSul) Allergies Allergy/AdvReac Type Severity Reaction Status Date / Time No Known Allergies Allergy Verified 08/01/24 17:44 Review of Systems Review of Systems: As reviewed above in HPI [facility] Past Medical History Medical History Celiac disease Benign neoplasm of foot surgically excised at age 8 years. Surgical History Surgical History H/O foot surgery Social History Social History Social History: Single Smoking status: Never smoker Second hand tobacco smoke exposure: No Alcohol intake: never Substance use: never Substance use type: does not use Do You Feel Safe in your Home?: Yes Lack of Transportation: No Lack of Food: Never True Current Housing: I Have Housing Concerned About Future Housing: No Difficulty Paying Gas/Electric Bills: No Difficulty Paying for Meds: No Currently Unemployed: No Education: Don't Know Difficulty w/ Childcare or Family Care: No Living arrangements: with family Occupation/Education: student Additional occupation/education comments: Pt goes to school full-time. Gender identity (if verbalized by the patient): Female Sexual Orientation (if Verbalized by the Patient): Straight or Heterosexual Spiritual care concerns: No Exam Narrative: GENERAL: [Well-appearing, well-nourished, and in no acute distress.] HEAD: Right-sided scalp hematoma in the frontal scalp, normocephalic otherwise. EYES: [PERRLA and EOMI.] ENT: Nares clear, no rhinorrhea or epistaxis. Mucous membranes moist. NECK: Supple. CHEST: [Clear to auscultation. No respiratory distress.] HEART: [Regular rate and rhythm]. No murmur heard. [Normal peripheral pulses.] ABDOMEN: [Soft, nondistended], [nontender], [No rigidity or guarding] EXTREMITIES: Normal range of motion. [No edema.] SKIN: Warm, dry, no rash. NEURO: [No focal deficits]. Alert and oriented [x3.] PSYCH: [Normal mood and affect.] Course Vital Signs Vital signs: Vital Signs Temperature 36.5 C 08/01/24 17:55 Pulse Rate 96 08/01/24 17:55 Respiratory Rate 20 08/01/24 17:55 Blood Pressure 127/77 08/01/24 17:55 Pulse Oximetry 100 08/01/24 17:55 Oxygen Delivery Room Air 08/01/24 17:55 Temperature 36.5 C 08/01/24 17:55 Pulse Rate 96 08/01/24 17:55 Respiratory Rate 20 08/01/24 17:55 Blood Pressure 127/77 08/01/24 17:55 Pulse Oximetry 100 08/01/24 17:55 Oxygen Delivery Room Air 08/01/24 17:55 MDM - Head Injury MDM Narrative Medical decision making narrative: 23-year-old female presenting with minor closed head injury. A car door closed onto her right side scalp. She did not lose consciousness. No blood thinner use or seizure history. Normal vital signs. Unremarkable neurological assessment. Normal mentation without any nausea or vomiting. Low risk criteria for any significant intracranial pathology given the minor injury. Meets CT head criteria per [place] rules and can be safely evaluated without any imaging. Patient provided with ibuprofen Tylenol and ice pack. She is safe for discharge home with return precautions and pain medications as needed. Patient comfortable with this plan and safely discharged. Medical Records Attestation: I reviewed the patient's medical records. Discharge Plan Discharge Clinical Impression: CHI (closed head injury), Hematoma of frontal scalp Patient Disposition: Home, Self-Care Condition: Stable Instructions: Antibiotic Form, Concussion (ED), Head Injury (ED) Additional Instructions: You have a scalp hematoma which is a bruise under the top layer of the skin and the skull. No concerning signs of any significant injury. Recommendations are to apply ice to the area up to 20 minutes at a time to help with the swelling and pain. Take ibuprofen 600 mg every 6 hours in addition to 1000 mg Tylenol every 8 hours as needed for the next several days for any pain or swelling. If you start developing any vision changes, weakness, profound nausea and vomiting, mental status changes, any other concerns return to the ER otherwise follow-up with regular doctor as needed. Patient Language: Persian Prescriptions: New acetaminophen [Tylenol Extra Strength] 500 mg tablet 1,000 mg PO TID PRN (Reason: pain) Qty: 30 0RF ibuprofen 600 mg tablet 600 mg PO TID PRN (Reason: pain) Qty: 20 0RF No Action fexofenadine-pseudoephedrine [Darlene-D 12 Hour] 60-120 mg tablet extended release 12 hr 1 tablet PO Q12H PRN (Reason: sinus symptoms) Qty: 30 0RF dicyclomine 20 mg tablet 20 mg PO QID 30 Days Qty: 120 11RF ferrous sulfate [FeroSul] 325 mg (65 mg iron) tablet 325 mg PO DAILY norethindrone-e.estradiol-iron 1 mg-20 mcg (21)/75 mg (7) tablet 1 tablet PO DAILY Follow-up/Referrals: Mat,Suzi Figueroa MD [Primary Care Provider] - Time of Disposition: 18:10
--- OUTSIDE RECORDS SUMMARY | 2024-08-01 18:54 | XMS_ITS | Clinical Summary ---
Author Organization [facility] Jackie Vazquez Address [address] [facility] [place] [address] Care Team Providers Care Database Architect Name Role Phone Suzi Rivero MD Primary Care Provider +1- [phone] Allergies No known active allergies Medications ferrous [...] Encounters Date Type Department Care Team Description 07/26/2024 External Device Data [place] ABSTRACTION Provider, Abstract 07/26/2024 External Device Data [place] ABSTRACTION Provider, Abstract 07/15/2024 External Device Data [place] AB[place]CTION Provider, Abstract 07/14/2024 External Device Data [place] ABSTRACTION Provider, Abstract 07/11/2024 External Device Data [place] AB[place] Provider, Abstract 06/27/2024 External Device Data [place] AB[place]CTION Provider, Abstract 06/06/2024 External Device Data [place] ABSTRACTION Provider, Abstract 05/31/2024 External Device Data [place] ABSTRACTION Provider, Abstract 05/31/2024 External Device Data [place] ABSTRACTION Provider, Abstract from Last 3 Months Family History Medical [...] Description 09/28/2024 3:45 PM CDT Office Visit [facility] Oncology and Hematology - [place] [address] [facility] [address] [place] [address] Luis Antonio Adame MD [address] [facility] [address] [place] [address] Health Maintenance Due Date Last Done Comments CHLAMYDIA SCREENING (ANNUAL) 11-24 YEARS 2013 HPV VACCINES (3 - 3-dose series) 02/29/2020 12/07/19 20, 07/01/2018 CERVICAL CANCER SCREENING 11/04/2023 PAP SMEAR 11/04/2023 PAP SMEAR 11/04/2023 INFLUENZA VACCINE (#1) 2023 07/01/2018, 2013 DTAP/TDAP/TD VACCINES (7 - T d or Tdap) 02/02/2024 02/01/2014, 12/01/2007, 05/22/2004, Additional history exists Preventative Visit- Commercial 05/10/2024 0 12/07/2019, 07/01/2018, 01/05/2017, Additional history exists HEPATITIS B VACCINES Completed 07/06/2003, 04/06/2003, 01/04/2003, Additional history exists Insurance [employer] BLUE ACCESS/TRUE BLUE PPO Care Teams Database Architect Relationship Specialty Start Date End Date Suzi Rivero MD [address] [facility] [address] [place] [address] PCP - General Family Practice 08/26/23
--- OUTSIDE RECORDS SUMMARY | 2024-08-01 18:54 | XMS_ITS | Clinical Summary ---
Author Organization [facility] Address [address] [place] [id number] Care Team Providers Care Clay Washer Name Role Phone None, Provider MD Primary [...] this topic Insurance ALLIED BENEFITS Care Teams Clay Washer Relationship Specialty Start Date End Date None, Provider, PCP - General 08/18/21
== END 2024-08-01 18:25 | disposition home or self-care (01) ==
LOC: ANHED 18:18
PROVIDERS: Emergency Provider Student in an Organized Health Care Education/Training Program; PCP Family Medicine
DX: S00.03XA Contusion of scalp, initial encounter (principal); V48.4XXA Person boarding or alighting a car injured in noncollision transport accident, initial encounter
CPT/HCPCS: 99283; A9270

== ENCOUNTER 2025-02-06 19:10 | Emergency (ER) | payer BC, SELFPAY ==
[2025-02-06 19:10] VITALS: BP 117/70; PULSE 114; RESP 22; TEMP 37.1; O2SAT 100
--- NOTE | 2025-02-06 19:21 | ED.SKABFB ---
HPI - Skin/Abscess/Foreign Bdy General Stated complaint: Allergic Reaction Time Seen by Provider: 02/06/25 19:11 Source: patient Mode of arrival: ambulatory Limitations: no limitations History of Present Illness HPI narrative: Patient is a 24-year-old female who presents with an allergic reaction to pistachio. Patient has never pistachio before. Pistachio ingestion was roughly at 6:45 p.m.. Patient immediately started breaking out in hives and not feeling well. Patient has been profusely vomiting since. Patient reports her whole body is itchy and she does feel like her throat is starting to close. Patient has history of ulcerative colitis and celiac disease. Patient is currently on multiple forms of steroids a day. Related Data Home Medications ?Medication ?Instructions ?Recorded ?Confirmed ?Last Taken ?Type norethindrone 1 mg-ethinyl 1 tablet PO DAILY 07/05/20 12/14/24 Unknown History estradiol 20 mcg (21)-iron 75 mg (7) tablet ferrous sulfate 325 mg (65 mg 325 mg PO DAILY 09/14/23 12/14/24 Unknown History iron) tablet (FeroSul) Allergies Allergy/AdvReac Type Severity Reaction Status Date / Time No Known Allergies Allergy Verified 02/06/25 19:27 Review of Systems Review of Systems: All systems reviewed & are unremarkable except as noted in HPI and below Constitutional: Constitutional: Denies body ache(s), Denies chills, Denies fatigue, Denies fever(s), Denies headache(s), Denies malaise and Denies weakness Eyes: Eyes: Denies blurry vision, Denies irritation and Denies loss of vision ENT: Denies otalgia, Denies headache(s), Denies nasal discharge, Denies sinus pain, Denies sore throat and Reports throat swelling Cardiovascular: Cardiovascular: Denies chest pain, Denies irregular heart rhythm and Denies dyspnea Respiratory: Respiratory: Denies dyspnea Gastrointestinal: Gastrointestinal: Denies abdominal pain, Denies melena, Denies hematochezia, Denies diarrhea, Denies nausea and Denies vomiting Musculoskeletal: Musculoskeletal: Denies back pain, Denies myalgias and Denies arthralgias Integumentary/Breasts: Skin/Breast: Reports pruritus and Reports rash Neurologic: Denies headache(s), Denies loss of vision and Denies weakness Psychiatric: Psychiatric: Reports no additional psychiatric complaints Endocrine: Endocrine: Denies fatigue PMFSH Past Medical History Medical History Celiac disease Benign neoplasm of foot surgically excised at age 8 years. Surgical History Surgical History H/O foot surgery Social History Social History Social History: Single Smoking status: Never smoker Second hand tobacco smoke exposure: No Alcohol intake: never Substance use: never Substance use type: does not use Do You Feel Safe in your Home?: Yes Lack of Transportation: No Lack of Food: Never True Current Housing: I Have Housing Concerned About Future Housing: No Difficulty Paying Gas/Electric Bills: No Difficulty Paying for Meds: No Currently Unemployed: No Education: Don't Know Difficulty w/ Childcare or Family Care: No Living arrangements: with family Occupation/Education: student Additional occupation/education comments: Pt goes to school full-time. Gender identity (if verbalized by the patient): Female Sexual Orientation (if Verbalized by the Patient): Straight or Heterosexual Spiritual care concerns: No Comments At time of signature, agree with nursing past medical, surgical, social and family history. There is no relevant family history pertinent to the presenting complaint. Exam Const: General: cooperative, healthy appearing, comfortable, no acute distress and well nourished Nutritional Appearance: well nourished Orientation/consciousness: patient oriented x3 Limitations: no limitations HENMT: Head: normal to inspection, normocephalic and atraumatic Ears: hearing grossly normal bilaterally and external ears normal Face/Nose/Sinus: Normal external nose present, normal facial exam and face symmetric Face and sinus: normal facial exam and face symmetric Mouth: Yes lip normal Eyes: General: appearance normal, both eyes and all related structures Alignment and Position: alignment normal and position normal Periorbital: periorbital findings normal Eyelids: eyelids normal Pupils: Equal, round and reactive pupils present EOM: EOMs intact bilaterally Neck: Neck: normal visual inspection, full ROM and supple Chest: Chest palpation & inspection: normal inspection of the chest Resp: Effort & Inspection: normal respiratory effort, able to speak in complete sentences and tachypneic Auscultation: clear to auscultation bilaterally, no crackles, no rales, no rhonchi and no wheezes Cardio: Rate: tachycardic Rhythm: regular rhythm Heart sounds: S1 normal heart sound present and S2 normal heart sound present GI: Inspection: normal to inspection Skin: General skin exam: normal color and no rashes or lesions noted Neuro: General: patient oriented x3 and moves all extremities Cranial nerves: Yes Equal, round and reactive pupils present Speech: normal speech Gait exam (Neuro): Normal gait present Extrem: General: normal to inspection, full ROM and no edema Psych: Appearance: grossly normal and well kempt Mental Status: mental status grossly normal Speech and movement: Normal speech and movement present Affect: normal affect Attitude: cooperative Thought process: Normal thought process present Course Course Emergency Course: Patient being transferred to [facility] for further treatment and monitoring. Portions of this record may have been created with voice recognition software Level of Care: Express Care Visit Vital Signs Vital signs: Reviewed Transfer Transfered to: [place] Transportation: ALS Transfer rationale: Allergic reaction Accepting physician: Oswaldo WU MDM - Skin/Abscess/Foreign Bdy MDM Narrative Medical decision making narrative: Patient being transferred to [facility] for further treatment and monitoring. EMS was called and patient left the building within 10 minutes. Epi, Benadryl, Solu-Medrol were pulled and ready to administer when EMS arrived. EMS stated they would rather just give it. Differential Diagnosis Differential diagnosis: Likely allergic reaction to drug (Pistachio) Medical Records Attestation: I reviewed the patient's medical records. Discharge Plan Discharge Clinical Impression: Allergic reaction Qualifiers: Encounter type: initial encounter Qualified Code(s): T78.40XA - Allergy, unspecified, initial encounter Patient Disposition: Acute Care Hospital Condition: Guarded Prognosis Patient Language: Swazi Prescriptions: No Action escitalopram oxalate 20 mg tablet 20 mg PO DAILY Qty: 90 1RF hyoscyamine sulfate 0.125 mg tablet,disintegrating 0.125 mg PO QID PRN (Reason: dyspepsia) Qty: 30 1RF ferrous sulfate [FeroSul] 325 mg (65 mg iron) tablet 325 mg PO DAILY norethindrone-e.estradiol-iron 1 mg-20 mcg (21)/75 mg (7) tablet 1 tablet PO DAILY acetaminophen [Tylenol Extra Strength] 500 mg tablet 1,000 mg PO TID PRN (Reason: pain) Qty: 30 0RF Follow-up/Referrals: Chintan Romo MD [Primary Care Provider, [facility]] Time of Disposition: 19:21
== END 2025-02-06 19:18 | disposition short-term general hospital (02) ==
PROVIDERS: Emergency Provider Nurse Practitioner Family; PCP Family Medicine
DX: T78.1XXA Other adverse food reactions, not elsewhere classified, initial encounter (principal); K90.0 Celiac disease; K51.90 Ulcerative colitis, unspecified, without complications
CPT/HCPCS: 99215; G0463

== ENCOUNTER 2025-02-06 19:41 | Emergency (ER) | payer BC, SELFPAY ==
[2025-02-06] VITALS (21 sets, daily range): BP systolic 120–132; BP diastolic 81–94; PULSE 53–82; RESP 15–31; TEMP 36.9; O2SAT 98–100
--- OUTSIDE RECORDS SUMMARY | 2025-02-06 08:00 | XMS_ITS | Encounter Summary ---
Author Organization [facility] Address [address] [place] [address] Phone Care Team Providers Care Perioperative Manager Name Role Phone MARISA West Jr., Jose Maria Adams Primary Care Provide r Reason for Visit * Consultation (Routine) - Authorized Specialty Diagnoses / Procedures Referred By Jaylin t Referred To Contact Gastroenterology Diagnoses Celiac disease Noninfectious gastroenteritis, unspecified type Stephanie Castorena PA [address] [facility] [address] [place] [address] Phone: tel: fax: [facility] (All Locations) Referral ID Status Reason Start Date Expiration Date Visits Requested Visits Authorized [id number] Authorized Specialty Services Required 12/06/2024 01/05/2026 12 12 Encounter Details Date Type Department Care Team (Late st Contact Info) Description 02/06/2025 8:00 AM CDT Office Visit [facility] Medicine Gastroenterology [address] [facility] [address] [place] [address] Lisa Lipscomb, RD [address] [place] [address] Social History Tobacco Use Types Packs/Day Years Used Date Smoking Tobacco: Never Alcohol Use Standard Drinks/Week Comments Never 0 (1 standard drink = 0.6 oz pur e alcohol) PHQ-2 Answer Date Recorded PHQ-2 Total Score (If total score is 3 or more points, staff should administer the PHQ-9) 0 12/28/2024 AUDIT-C Answer Date Recorded Frequency of Alcohol Consumption Not on file 01/23/2025 Q2: How many drinks containi ng alcohol do you have on a typical day when you are drinking? Patient does not drink Frequency of Binge Drinking Not on file 01/08 Personal Safety Answer Date Recorded Have you ever been in or are you currently in a harmful physical or emotional relationship or is someone making you feel afraid or unsafe? Denies 01/23/2025 Comments Unknown Sex and Gender Information Value Date Recorded Sex Assigned at Not on file Legal Sex Female 7:23 AM [employer] Gender Identity Not on file Sexual Orientation Not on file documented as of this encounter Plan of Treatment Not on file documented as of this encounter Visit Diagnoses Not on filedocumented in this encounter Orders Outpatient Referral Count Last Ordered Date Fir st Ordered Date AMB REFERRAL TO NUTRITION SERVICES 1 2024 documented in this encounter Care Teams Perioperative Manager Relationship Specialty Start Date End Date Jose Maria West Jr., PA [address] [place] [id number] PCP - General Family Medicine 12/28/24 documented as of this encounter
--- NOTE | 2025-02-06 19:47 | ED_ITS ---
HPI - Allergic Reaction General Chief complaint: Allergic Reaction Stated complaint: ALLERGIC REACTION History of Present Illness HPI narrative: 24-year-old female with history of celiac disease an allergy to pistachio nuts. She presents from urgent care via EMS for signs and symptoms of anaphylaxis. Patient had a pistachio approximately 20 minutes prior to arrival to urgent care and started feeling throat closing sensations immediately. patient then developed diffuse hives, nauseousness abdominal pain incontinence to the diarrhea. EMS was called and administered 50 mg of IV Benadryl and she felt slightly improved. On arrival to the emergency department patient appears in distress, vomiting and incontinent to stool as well as having diffuse hives and urticaria over her extremities and face. Patient placed in the room for resuscitation and given intramuscular epinephrine 0.3 mg for anaphylaxis. Related Data Home Medications ?Medication ?Instructions ?Recorded ?Confirmed ?Last Taken ?Type norethindrone 1 mg-ethinyl 1 tablet PO DAILY 07/05/20 12/14/24 Unknown History estradiol 20 mcg (21)-iron 75 mg (7) tablet ferrous sulfate 325 mg (65 mg 325 mg PO DAILY 09/14/23 12/14/24 Unknown History iron) tablet (FeroSul) Allergies Allergy/AdvReac Type Severity Reaction Status Date / Time No Known Allergies Allergy Verified 02/06/25 19:27 Review of Systems 2 Review of Systems: As reviewed above in HPI [facility] Past Medical History Medical History Celiac disease Benign neoplasm of foot surgically excised at age 8 years. Surgical History Surgical History H/O foot surgery Social History Social History Social History: Single Smoking status: Never smoker Second hand tobacco smoke exposure: No Alcohol intake: never Substance use: never Substance use type: does not use Do You Feel Safe in your Home?: Yes Lack of Transportation: No Lack of Food: Never True Current Housing: I Have Housing Concerned About Future Housing: No Difficulty Paying Gas/Electric Bills: No Difficulty Paying for Meds: No Currently Unemployed: No Education: Don't Know Difficulty w/ Childcare or Family Care: No Living arrangements: with family Occupation/Education: student Additional occupation/education comments: Pt goes to school full-time. Gender identity (if verbalized by the patient): Female Sexual Orientation (if Verbalized by the Patient): Straight or Heterosexual Spiritual care concerns: No Exam 2 Narrative: GENERAL: acute distress, retching, vomiting and incontinence to stool with diffuse hives HEAD: [Normocephalic, atraumatic.] EYES: [PERRLA and EOMI.] ENT: Nares clear, no rhinorrhea or epistaxis. Mucous membranes moist. no intraoral edema, no uvular edema no angioedema in the face but hives are present over the skin NECK: Supple. CHEST: tachypneic but no wheezing. Clear breath sounds. HEART: [Regular rate and rhythm]. No murmur heard. [Normal peripheral pulses.] ABDOMEN: [Soft, nondistended], [nontender], [No rigidity or guarding] EXTREMITIES: Normal range of motion. [No edema.] SKIN: diffuse urticaria over extremities and face. NEURO: [No focal deficits]. Alert and oriented [x3.] PSYCH: [Normal mood and affect.] Course Vital Signs Vital signs: Vital Signs Temperature 36.9 C 02/06/25 19:41 Pulse Rate 79 02/06/25 19:41 Respiratory Rate 31 H 02/06/25 19:41 Blood Pressure 132/94 H 02/06/25 19:41 Pulse Oximetry 99 02/06/25 19:41 Oxygen Delivery Room Air 02/06/25 19:41 Temperature 36.5 C 02/07/25 00:37 Pulse Rate 60 02/07/25 00:37 Respiratory Rate 15 02/07/25 00:37 Blood Pressure 123/81 02/07/25 00:37 Pulse Oximetry 96 02/07/25 00:37 Oxygen Delivery Room Air 02/06/25 20:05 MDM - Allergic Reaction MDM Narrative Medical decision making narrative: 24-year-old female with history of celiac disease an allergy to pistachio nuts. She presents from urgent care via EMS for signs and symptoms of anaphylaxis. Patient had a pistachio approximately 20 minutes prior to arrival to urgent care and started feeling throat closing sensations immediately. patient then developed diffuse hives, nauseousness abdominal pain incontinence to the diarrhea. EMS was called and administered 50 mg of IV Benadryl and she felt slightly improved. On arrival to the emergency department patient appears in distress, vomiting and incontinent to stool as well as having diffuse hives and urticaria over her extremities and face. Patient placed in the room for resuscitation and given intramuscular epinephrine 0.3 mg for anaphylaxis. Patient placed on monitoring coordinator, remaining anaphylaxis medications administered including Solu-Medrol 125 mg IV, Pepcid 20 mg IV. RT received Benadryl before getting here. She is given a fluid bolus a basic laboratory studies and test obtained. Patient will be observed for resolution of symptomatology and additional medication administration as needed. Patient's workup shows hypokalemia likely from GI losses. This was repleted with IV and p.o. potassium. She felt much better after the epinephrine and medications. Observe for forms of any recurrence of symptoms and she was symptom-free upon discharge. Give her epinephrine pen prescriptions and return precautions and follow-up instructions. Patient and family comfortable the plan and safe for discharge at this time. Medical Records Attestation: I reviewed the patient's medical records. Lab Data Attestation: I reviewed the patient's lab results. 02/06/25 20:08 02/06/25 20:08 Labs: Lab Results 02/06/25 Range/Units 20:08 WBC 10.7 H (4.5-10.0) K/mm3 RBC 4.95 (4.2-5.4) M/mm3 Hgb 14.4 (12.0-15.0) g/dL Hct 43.8 (37.0-47.0) % MCV 88.5 (80-100) fl MCH 29.1 (26-34) pg MCHC 32.9 (32-36) g/dl RDW 12.5 (11.5-14.5) % Plt Count 471 H D (150-375) k/mm3 MPV 8.8 (7.4-10.4) fl Immature Gran % (Auto) 0.3 (0-0.5) % Neut % (Auto) 60.9 (45.5-73.1) % Lymph % (Auto) 33.5 (18.3-44.2) % [place] % (Auto) 4.3 (2.6-8.5) % Eos % (Auto) 0.9 (0-4.4) % Baso % (Auto) 0.1 L (0.2-1.2) % Lymph # (Auto) 3.59 H (0.9-3.2) K/mm3 [place] # (Auto) 0.5 (0.1-0.6) K/mm3 Eos # (Auto) 0.1 (0-0.3) K/mm3 Baso # (Auto) 0.0 (0.0-0.1) K/mm3 Abs Immat Gran (auto) 0.03 (0.00-0.031) K/mm3 Absolute Neuts (auto) 6.5 (1.3-6.7) K/mm3 Absolute Nucleated RBC 0.000 (0.0-0.012) K/mm3 Nucleated RBC % 0.0 (0.0-0.2) % Sodium 139 (137-145) mmol/L Potassium 2.7 L* (3.4-5.0) mmol/L Chloride 103 (98-107) mmol/L Carbon Dioxide 23 (22-30) mmol/L Anion Gap 13 H (4-12) mmol/L BUN 10 (7-17) mg/dL Creatinine 0.86 (0.7-1.0) mg/dL Estim Creat Clear Calc 79 ml/min Estimated GFR > 60 (59 - ) Glucose 125 H (65-110) mg/dL Calcium 8.9 (8.4-10.2) mg/dL Total Bilirubin 0.5 (0.2-1.3) mg/dL AST 30 (14-36) U/L ALT 25 (6-35) U/L Alkaline Phosphatase 85 (38-126) U/L Total Protein 7.8 (6.3-8.2) g/dL Albumin 4.3 (3.5-5.1) g/dL Serum HCG, Qual Negative Critical Care Time Critical Care Time Critical Care Time: Yes Total Critical Care Time: 35 Discharge Plan Discharge Clinical Impression: Anaphylactic reaction Patient Disposition: Home Condition: Stable Instructions: Antibiotic Form, Anaphylaxis (ED) Additional Instructions: You were treated for anaphylaxis in the emergency department. We have prescribed epinephrine pens. Take 1 with you at all times and have 1 ready in case of emergencies. Return with any recurrent symptoms or new concerns. Follow-up with regular doctor. Continue taking your current medications and steroids at home. Patient Language: Sammarinese Prescriptions: New epinephrine [EpiPen 2-Miguel Ángel] 0.3 mg/0.3 mL auto-injector 0.3 mg IM ONCE Qty: 2 0RF Rx Instructions: as a single dose; may repeat once No Action escitalopram oxalate 20 mg tablet 20 mg PO DAILY Qty: 90 1RF hyoscyamine sulfate 0.125 mg tablet,disintegrating 0.125 mg PO QID PRN (Reason: dyspepsia) Qty: 30 1RF ferrous sulfate [FeroSul] 325 mg (65 mg iron) tablet 325 mg PO DAILY norethindrone-e.estradiol-iron 1 mg-20 mcg (21)/75 mg (7) tablet 1 tablet PO DAILY Follow-up/Referrals: Chintan Romo MD [Primary Care Provider, Family Practice] Time of Disposition: 00:19
[2025-02-06] MEDS: FAMOTIDINE 20 MG/2 ML VIAL IV PUSH (19:53)
[2025-02-06] MEDS: EPINEPHrine HCL INJ 1 MG/ML AMPUL 0.3 MG IM (19:53)
[2025-02-06] MEDS: LACTATED RINGERS 1,000 ML 999 ML IV CONT (19:54)
--- NOTE | 2025-02-06 19:58 | PC.NURSE ---
giovanni javed 4mg
[2025-02-06] MEDS: ONDANSETRON INJ 4 MG/2 ML VIAL IV PUSH (19:59)
--- NOTE | 2025-02-06 20:06 | ECG_ITS ---
Test Date: 2025-02-06 20:09:08 Measurements Intervals [place] Rate: 54 P: 66 SD: 163 QRS: 50 QRSD: 89 T: 27 QT: 411 QTc: 393 Interpretive Statements SINUS BRADYCARDIA RSR' IN V1 OR V2, PROBABLY NORMAL VARIANT NONSPECIFIC T-WAVE ABNORMALITY- ANT/INF LEADS BASELINE ARTIFACT- II, III, AVF, V3-V4 BORDERLINE ECG No previous ECG available for comparison Electronically Signed On 02-07-2025 06:16:37 CDT by Deuce Hernandez D.O.
[2025-02-06 20:17] LABS: Hematocrit 43.8 % (37.0-47.0); Hemoglobin 14.4 g/dL (12.0-15.0); Immature Granulocyte Percent A 0.3 % (0-0.5); Lymphocytes Absolute Auto 3.59 K/mm3 (0.9-3.2); Mean Corpuscular HGB Conc 32.9 g/dl (32-36); Mean Corpuscular Hemoglobin 29.1 pg (26-34); Mean Corpuscular Volume 88.5 fl (80-100); Nucleated Red Blood Cells Absolute Auto 0.000 K/mm3 (0.0-0.012); Nucleated Red Blood Cells Perc 0.0 % (0.0-0.2); Platelet Count Result 471 k/mm3 (150-375); Red Blood Count 4.95 M/mm3 (4.2-5.4); White Blood Count 10.7 K/mm3 (4.5-10.0)
[2025-02-06 20:35] LABS: SPREG INTERNAL CONTROL Positive; Serum Qual hCG Negative
--- OUTSIDE RECORDS SUMMARY | 2025-02-06 20:38 | XMS_ITS | Clinical Summary ---
Author Organization [facility] Address [address] [place] [address] Care Team Providers Care [place] Star Name Role Phone MARISA West Jr., Jose Maria Adams Primary Care Provide r Allergies Active Allergy Reactions Criticality Noted Date Comments Gluten Other (See comments) 01/18/2025 Celiac disease Medications ferrous fumarate 325 mg (106 mg iron) tablet Take 1 tablet (325 mg total) by mouth daily Active escitalopram (LEXAPRO) 20 mg tablet Take 1 tablet (20 mg total) by mouth daily 12/15/19 25 Active CYANOCOBALAMIN, VITAMIN B-12, ORAL Take by mouth daily Active norethindrone-e thinyl estradiol-iron (Satinder Fe 1.5, 28,) 1.5 mg-30 mcg per tablet Take 1 tablet by mouth daily 04/07/20 22 Active cholecalciferol (VITAMIN D-3) 2000 unit capsuleIndicati ons:Vitamin D Deficiency Take 1 capsule (2,000 Units total) by mouth daily 30 capsule 3 01/20/20 25 025 Active budesonide EC (ENTOCORT EC) 3 mg 24 hr capsuleIndicati ons:Ulcerative pancolitis without complication (HCC) Take 3 capsules (9 mg total) by mouth every morning for 60 days, THEN 2 capsules (6 mg total) every morning for 30 days, THEN 1 capsule (3 mg total) every morning. 270 capsule 09/19/ 026 Active hyoscyamine (OSCIMIN) 0.125 mg DISSOLVE 1 TABLET ON THE TONGUE FOUR TIMES DAILY NEEDED FOR DYSPEPSIA 12/17/19 025 Discontinued dicyclomine (BENTYL) 20 mg tabletIndicatio ns:Irritable Bowel Syndrome Take 1 tablet (20 mg total) by mouth 3 (three) times a day 90 tablet 12/29/19 25 025 Discontinued sodium, potassium & mag sulfates (SUPREP BOWEL KIT) 17.5-3.13-1.6 gram recon solnIndications :Bowel Evacuation Mix and drink as in the instructions . 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 Knee pain 07/18/2013 Encounters Date Type Department Care Team Description 02/06/2025 8:00 AM CDT Office Visit [facility] Medicine Gastroenterology [address] [facility] [address] [place] [address] Lisa Lipscomb, CHACHA 01/26/2025 Results Follow-Up [facility] Medicine Gastroenterology [address] [facility] 12th [place] [address] [place] [address] Jonas Rainey MD Surgical pathology 01/23/2025 3:16 PM CDT Anesthesia Event [facility] Endoscopy [address] [address] Alexis Taylor MD 01/23/2025 3:00 PM CDT - 01/23/2025 4:00 PM CDT Surgery [facility] Endoscopy [address] [address] Jonas Rainey MD ESOPHAGOGASTRODUODENOSCOPY BIOPSY 01/23/2025 1:55 PM CDT - 01/23/2025 4:48 PM CDT Hospital Encounter [facility] Endoscopy [address] [place] [address] Jonas Rainey MD Celiac disease; Chronic diarrhea Discharge Disposition: Discharge to home or self care 01/19/2025 Results Follow-Up [facility] Medicine Gastroenterology [address] [facility] [address]th [place] [address] [place] [address] Kimberly Chung LPN Thyroid Function [place], Vitamin D 25 hydroxy, IgA, Additional followed-up results: 9 01/19/2025 Orders Only [facility] Medicine Gastroenterology [address] [facility] [address]th [place] [address] [place] [address] Kimberly Chung LPN Celiac disease (Primary Dx); Low vitamin D level 01/18/2025 9:05 AM CDT Lab [facility] [address] [place] [address] Celiac disease; Chronic diarrhea 01/18/2025 8:00 AM CDT Office Visit [facility] Medicine Gastroenterology [address] [facility] [address]th [place] [address] [place] [address] Jonas Rainey MD Celiac disease (Primary Dx); Chronic diarrhea 12/28/2024 10:45 AM CDT Office Visit [facility] [address] [place] [phone] Jose Maria West Jr., PA Irritable bowel syndrome with diarrhea (Primary Dx); Celiac disease from Last 3 Months Immunizations Immunization Administration Dates Next Due DTaP 12/01/2007, 5,07/06/2003,04/06,01/04/2003 DTaP / Hep B / IPV 07/06/2003,04/06/2003, 003 HPV9 12/07/2019,07/01/2018 Hep A, Ped Unspecified 11/30/2005 Hep A, Pediatric 12/01/2007 Hep B, Adolescent or Pediatric 4,04/06/2003,01/04/2003,11/03 HiB 05/22/2004, 4,04/06/2003,01/04 IPV 12/01/2007, 4,04/06/2003,01/04 Influenza, Live, Intranasal, Quadrivalent 02/01/2014 Influenza, Quadrivalent, Spl it, Preservative Free, Intramuscular 07/01/2018 Influenza, Unspecified 02/14/2024(Deferred: Jocelyne ent decision) MMR 12/01/2007,11/05/2003 Meningococcal MCV4P (Menactra) 12/07/2019,2013 PPD TEST 11/05/2003 Pneumococcal Conjugate 7-Valent 05/22/19 05,07/06/2003,04/06/2003,01/04 Pneumococcal Conjugate, Unspecified 05/10,07/06/2003,04/06/2003,01/04 Tdap 02/01/2014 Varicella 12/01/2007,05/22/2004 Surgical History Surgery Date Site/Laterality Comments FOOT SURGERY FINGER FRACTURE SURGERY Medical History Medical History Date Comments Anxiety Celiac disease Family History Medical History Relation Name Comments No Known Problems Father Lung cancer Maternal Grandfather Family history of malignant neoplasm - Relation: Grandfather (Added by TW Conv) No Known Problems Mother Celiac disease Neg Hx Colon cancer Neg Hx Diabetes type I Neg Hx Inflammatory bowel disease Neg Hx Stomach cancer Neg Hx Thyroid disease Neg Hx Relation Name Status Comments Father Alive Maternal [...] on file Legal Sex Female 7:23 AM [employer] Gender Identity Not on file Sexual Orientation Not on file Obstetrics History Last Filed Vital Signs Vital Sign Reading Time Taken Comments Blood Pressure 95/58 01/23/2025 4:35 PM CDT Pulse 64 01/23/2025 4:35 PM CDT Temperature 36.3 C (97.3 F) 01/23/2025 4:05 PM CDT Respiratory Rate 22 01/23/2025 4:35 PM CDT Oxygen Saturation 100% 01/23/2025 4:35 PM CDT Inhaled Oxygen Concentration - - Weight 56.7 kg (125 lb) 01/23/2025 2:05 PM CDT Height 165.1 cm (5' 5) 01/23/2025 2:05 PM CDT Body Mass Index 20.8 01/23/2025 2:05 PM CDT Plan of Treatment Health Maintenance Due Date Last Done Comments Cervical Cancer Screening 2002 Chlamydia and Gonorrhea (GC/ CT) Screening 2002 Hepatitis C Screening 2002 Meningococcal B Vaccine (1 o f 2 - Standard) 2018 HPV Vaccines (3 - 3-dose series) 02/29/2020 12/07/19 20, 07/01/2018 Regular Well Visit/Exam 18-64 2020 DTaP/Tdap/Td Vaccine (7 - Td or Tdap) 02/02/2024 02/01/2014, 12/01/2007, 05/22/2004, Additional history exists Influenza Vaccine (#1) 2025 07/01/2018, 2013 Depression Screening 12/28/2025 12/28/2024 Hepatitis B Screening Completed 07/06/2003 , 07/06/2003, 04/06/2003, Additional history exists Pneumococcal vaccine <65 Completed 005, 05/22/2004, 07/06/2003, Additional history exists Varicella Vaccines Completed 12/01/2007, 05/22/2004 Procedures Procedure Name Priority Date/Time Associated Diagnosis Comments COLONOSCOPY 01/23/2025 3:35 PM CDT SURGICAL PATHOLOGY Routine 01/23/2025 3:24 PM CDT Celiac disease Chronic diarrhea EGD 01/23/2025 3:19 PM CDT COLON BIOPSY 01/23/2025 3:16 PM CDT Celiac disease Chronic diarrhea ESOPHAGOGASTRODUODENOSCOPY BIOPSY 01/23/2025 3:16 PM CDT Celiac disease Chronic diarrhea POCT HCG, URINE Routine 01/23/2025 EGFR Routine 01/18/2025 8:58 AM CDT Celiac disease DIFFERENTIAL AUTO Routine 01/18/2025 8:58 AM CDT Celiac disease COMPREHENSIVE METABOLIC PANEL Routine 8:58 AM CDT Celiac disease CBC WITH AUTO DIFFERENTIAL Routine 01/18 8:58 AM CDT Celiac disease FERRITIN Routine 01/18/2025 8:58 AM CDT Celiac disease FOLATE Routine 01/18/2025 8:58 AM CDT Celiac disease VITAMIN B12 Routine 01/18/2025 8:58 AM CDT Celiac disease TISSUE TRANSGLUTAMINASE, IGA Routine 03/2025 8:58 AM CDT Celiac disease Chronic diarrhea GLIADIN ANTIBODY, IGG Routine 01/18/2025 8:58 AM CDT Celiac disease Chronic diarrhea IGA Routine 01/18/2025 8:58 AM CDT Celiac disease VITAMIN D 25 HYDROXY Routine 01/18/2025 8:58 AM CDT Celiac disease THYROID FUNCTION CASCADE Routine 025 8:58 AM CDT Celiac disease Chronic diarrhea from Last 3 Months Results * Colonoscopy (01/23/2025 3:35 PM CDT) Anatomical Region Laterality Modality Other Narrative Procedure Note Jonas Rainey MD - 01/23/2025 3:35 PM CDT ENDOSCOPY LAB Patient Name: Giacomo Granados Procedure Date: 01/23/2025 3:35 PM Date of : 2000 Admit Type: Outpatient Age: 24 Gender: Female Attending MD: Jonas Rainey M.D., Room: [facility] ENDOSCOPY ROOM 01 Note Status: Finalized Procedure: Colonoscopy Indications: Chronic diarrhea Providers: Jonas Rainey M.D., Kenyon Atkinson M.D. (Fellow) Referring MD: Mel Best Medicines: Monitored Anesthesia Care Complications: No immediate complications. Estimated Blood Loss: Estimated blood loss: none. Procedure: Pre-Anesthesia Assessment: - Prior to the procedure, a History and Physicalwas performed, and patient medications, allergies and sensitivities were reviewed. The patient'stolerance of previous anesthesia was reviewed. - Immediately prior to administration ofmedications, the patient was re-assessed for adequacy to receive sedatives. The benefits, risks and alternatives of theprocedure and sedation were discussed and informed consentwas obtained. All questions were answered. Please referto the signed informed consent document in the medical record. The scope was passed under direct vision.The [id number] was introduced through the anusand advanced to the terminal ileum. The colonoscopy was performed without difficulty. The patient tolerated the procedure well. The quality of the bowel preparation was evaluated using the BBPS (BostonBowel Preparation Scale) with scores of: Right Colon = 3, Transverse Colon = 3 and Left Colon = 3 (entiremucosa seen well with no residual staining, smallfragments of stool or opaque liquid). The total BBPS score equals 9. Findings: The perianal and digital rectal examinations were normal. The terminal ileum appeared normal. Biopsies were taken with a cold forceps for histology. Inflammation was found in a continuous and circumferential patternfrom the ascending colon to the cecum. This was graded as Sarkar Score 1(mild, with erythema, decreased vascular pattern, mild friability), and when compared to the previous examination, the findings are new. Biopsies were taken with a cold forceps for histology. Inflammation was found in a continuous and circumferential patternfrom the sigmoid colon to the transverse colon. This was graded as MayoScore 2 (moderate, with marked erythema, absent vascular pattern,friability, erosions), and when compared to the previous examination, thefindings are new. Biopsies were taken with a cold forceps for histology. Inflammation was found in a continuous and circumferential pattern in the rectum. This was graded as Sarkar Score 3 (severe, with spontaneous bleeding, ulcerations), and when compared to the previousexamination, the findings are new. Biopsies were taken with a cold forceps for histology. The exam was otherwise without abnormality. Impression: - The examined portion of the ileum was normal. Biopsied. - Mild (Sarkar Score 1) ulcerative colitis, new since the last examination. Biopsied. - Moderately active (Sarkar Score 2) ulcerativecolitis, new since the last examination. Biopsied. - Severe (Sarkar Score 3) ulcerative colitis, newsince the last examination. Biopsied. - The examination was otherwise normal. Recommendation: - Await pathology results. - . Attending Participation: I was present and participated during the entire procedure, including non-krishnamurthy portions. Electronically signed by Jonas Rainey MD Jonas Rainey M.D. 01/23/2025 3:56:23 PM Kenyon Atkinson M.D. Number of Addenda: 0 Note Initiated On: 01/23/2025 3:35 PM us Jonas Rainey MD ENDOSCOPY PROCEDURES Final Resu lt * Surgical pathology (01/23/2025 3:24 PM CDT) Tissue (Duodenum, Biopsy) 01/23/2025 3:24 PM CDT Tissue specimen (specimen) (Duodenum, Biopsy) 01/23/2025 3:25 PM CDT Tissue specimen (specimen) (Ileum, Biopsy) 01/23/2025 3:41 PM CDT Tissue specimen (specimen) (Colon, Biopsy) 01/23/2025 3:43 PM CDT Tissue specimen (specimen) (Colon, Biopsy) 01/23/2025 3:44 PM CDT Tissue specimen (specimen) (Colon, Biopsy) 01/23/2025 3:45 PM CDT Tissue specimen (specimen) (Colon, Biopsy) 01/23/2025 3:47 PM CDT Narrative PATHOLOGY BJ - 01/24/2025 5:32 PM CDT EPIC results best viewed via link to PDF [facility] of Surgical Pathology [place] [address] Note to Patients: This report may contain a detailed description of human tissue sent by a health care provider to the laboratory for pathologic evaluation. The content of this report is essential for diagnosis and may provide important critical findings. This information may be unfamiliar to patients to review without a medical professional present. It is advised that the patient review this report in the presence of a health care provider who can answer questions and explain the details. SURGICAL PATHOLOGY REPORT FINAL WITH ADDENDUM Patient Name: GIACOMO GRANADOS Gender: F : 2000 (Age: 24) Address: [address] [place] [id number] Hospital #: [id number] Taken:01/23/2025 Received:01/23/2025 Reported: 01/24/2025 Patient Type: [facility] SAME Client [facility] Service: Gastro Location: Physician(s): Shaina Vásquez P.A. Jessica Lenore Nussnaum, PA Diagnosis: A. Small intestine, duodenum, biopsy: - Duodenal mucosa with mildly increased intraepithelial lymphocytes, focal partial villous blunting, and increased lamina propria chronic inflammation (see comment). B. Small intestine, duodenum, bulb, biopsy: - Duodenal mucosa with mildly increased intraepithelial lymphocytes, focal partial villous blunting, gastric mucin cell metaplasia, and increased lamina propria chronic inflammation. C. Small intestine, terminal ileum, biopsy: - Ileal mucosa with no significant abnormality. D. Colon, cecum and ascending, biopsy: - Colonic mucosa with lamina propria fibrosis. E. Colon, transverse, biopsy: - Colonic mucosa with lamina propria fibrosis and mild crypt distortion. - One poorly-formed epithelioid granuloma; results of acid-fast bacilli (AFB) and GMS stains will be reported in an addendum. F. Colon, descending and sigmoid, biopsy: - Colonic mucosa with active chronic colitis (cryptitis and basal plasmacytosis) and lamina propria fibrosis. G. Rectum, biopsy: - Rectal mucosa with active chronic proctitis (cryptitis, crypt distortion, and basal plasmacytosis) and lamina propria fibrosis. [facility]/01/24/2025 11:02 By this signature, I attest that the above diagnosis is based upon my personal examination of the slides(and/or other material indicated in the diagnosis). Grace Beaulieu MD, PHD Report Electronically Reviewed and Signed Out By Grace Beaulieu MD, PHD 01/24/2025 17:32:50 Diagnosis Comment Part A and part B: The patient's clinical history of celiac disease diagnosed in 2023 and ongoing gluten-free diet are noted. The histologic features can be compatible with treated/partially treated celiac disease. Colorectal biopsies show diffuse lamina propria fibrosis and active chronic colitis in distal colon and rectum. The etiology of fibrosis remains unclear but raises the concern for injuries associated with medications such as nonsteroidal-antiinflammatory drugs (NSAIDs). History: The patient is a 24-year-old woman presenting with celiac disease and chronic diarrhea. Operative procedure: Upper endoscopy biopsy and colon biopsy. Specimen(s) Received: A: 2nd duodenum bulb biopsy B: Duodenal bulb biopsy C: Ileum biopsy D: Cecum and ascending colon biopsy E: Transverse colon biopsy F: Descending and sigmoid colon biopsy G: Rectum biopsy Gross Description: Received in seven formalin jars labeled with the patient's identifiers. A. Labeled second duodenum bulb biopsy and consists of multiple arriaga-pink fragment(s) of soft tissue with an aggregate measurement of 1.5 x 0.8 x 0.1 cm. Labeled A1. Jar 0. B. Labeled duodenal bulb biopsy and consists of two arriaga-pink fragment(s) of soft tissue measuring 0.50.6 cm in greatest dimension. Labeled B1. Jar 0. C. Labeled ileum biopsy and consists of multiple arriaga-pink fragment(s) of soft tissue with an aggregate measurement of 0.9 x 0.6 x 0.1 cm. Labeled C1. Jar 0. D. Labeled cecum and ascending colon biopsy and consists of multiple arriaga fragment(s) of soft tissue with an aggregate measurement of 0.8 x 0.5 x 0.1 cm. Labeled D1. Jar 0. E. Labeled transverse colon biopsy and consists of multiple arriaga fragment(s) of soft tissue with an aggregate measurement of 0.8 x 0.5 x 0.1 cm. Labeled E1. Jar 0. F. Labeled descending and sigmoid colon biopsy and consists of multiple arriaga fragment(s) of soft tissue with an aggregate measurement of 1.0 x 0.4 x 0.1 cm. Labeled F1. Jar 0. G. Labeled rectum biopsy and consists of multiple arriaga fragment(s) of soft tissue with an aggregate measurement of 0.8 x 0.7 x 0.1 cm. Labeled G1. Jar 0. elsw/01/23/2025 19:29 PA(s): Samantha Carvalho By this signature, I attest that the above diagnosis is based upon my personal examination of the slides(and/or other material). Addenda/Procedures Addendum Ordered:01/25/2025Status:Signed OutAddendum Complete:01/25/2025y:Grace Beaulieu MD, PHDAddendum Signed Out:01/25/2025 Addendum Comment Acid-fast bacilli (AFB) and GMS stains are negative. By this signature, I attest that the above diagnosis is based upon my personal examination of the slides(and/or other material indicated in the diagnosis). Grace Beaulieu MD, PHDReport Electronically Reviewed and Signed Out By Grace Beaulieu MD, PHD 01/25/2025 16:57:46 Microscopic slide review and interpretation for this case was performed at [facility], Department of Surgical Pathology, [address] [id number], [place] [address] CLIA # [id number] The performance characteristics of some immunohistochemical stains, fluorescence in-situ hybridization tests and immunophenotyping by flow cytometry cited in this report (if any) were determined by the Surgical Pathology and Flow Cytometry Departments at [facility] as part of an ongoing director quality assurance program and in compliance with federally mandated regulations drawn from the Clinical Laboratory Improvement Act of 1988 (CLIA '88). Some of these tests rely on the use of analyte specific reagents and are subject to specific labeling requirements by the US Food and Drug Administration. Such diagnostic tests may only be performed in a facility that is certified by the Department of Health and Human Services as a high complexity laboratory under CLIA '88. The FDA has determined that such clearance or approval is not necessary. This test is used for clinical purposes. It should not be regarded as investigational or for research. Nevertheless, federal rules concerning the medical use of analyte specific reagents require that the following disclaimer be attached to the report: This test was developed and its performance characteristics determined by the Surgical Pathology and Flow Cytometry Departments of [facility]. It has not been cleared or approved by the U. S. Food and Drug Administration. IMAGES AND SCANNED DOCUMENTS, IF INCLUDED, ONLY VIEWABLE IN PDF VERSION OF REPORT Jonas Rainey MD LAB PATHOLOGY ORDERABLES Final Result PATHOLOGY [facility] [phone] * EGD (01/23/2025 3:19 PM CDT) Anatomical Region Laterality Modality Other Narrative Procedure Note Jonas Rainey MD - 01/23/2025 3:19 PM CDT ENDOSCOPY LAB Patient Name: Giacomo Granados Procedure Date: 01/23/2025 3:19 PM Date of : 2000 Admit Type: Outpatient Age: 24 Gender: Female Attending MD: Jonas Rainey M.D., Room: [facility] ENDOSCOPY ROOM 01 Note Status: Finalized Procedure: Upper GI endoscopy Indications: Follow-up of celiac disease, Diarrhea Providers: Jonas Rainey M.D., Kenyon Atkinson M.D. (Fellow) Referring MD: Mel Best Medicines: Monitored Anesthesia Care Complications: No immediate complications. Estimated Blood Loss: Estimated blood loss was minimal. Procedure: Pre-Anesthesia Assessment: - Prior to the procedure, a History and Physicalwas performed, and patient medications, allergies and sensitivities were reviewed. The patient'stolerance of previous anesthesia was reviewed. - Immediately prior to administration ofmedications, the patient was re-assessed for adequacy to receive sedatives. After obtaining informed consent, the endoscope was passed under direct vision. Throughout theprocedure, the patient's blood pressure, pulse, and oxygen saturations were monitored continuously. The [id number] was introduced through the mouth, and advanced to the second part of duodenum. Theupper GI endoscopy was accomplished without difficulty. Findings: The examined esophagus was normal. The entire examined stomach was normal. Flattening and scalloped mucosa were found in the entire duodenum.Two biopsies were obtained with cold forceps for evaluation of celiac disease in the duodenal bulb, as well as six biopsies in the second portion of the duodenum. Impression: - Normal esophagus. - Normal stomach. - Duodenal mucosal changes seen, consistent with celiac disease. Biopsies performed in the duodenal bulb and in the second portion of the duodenum. Recommendation: - Await pathology results. - - Attending Participation: I was present and participated during the entire procedure from insertion to removal of the endoscope. Electronically signed by Jonas Rainey MD Jonas Rainey M.D. 01/23/2025 3:35:33 PM Kenyon Atkinson M.D. Number of Addenda: 0 Note Initiated On: 01/23/2025 3:19 PM Jonas Rainey MD ENDOSCOPY PROCEDURES Final Resu lt * POCT hCG, urine (01/23/2025) HCG, ur, POC Negative Negative Lot Number [id number] QC Backgroud Clear Acceptable QC Control Line Acceptable Urine 01/23/2025 [facility] Provider POINT OF CARE TEST ORDERA BLES Final Result * eGFR (01/18/2025 8:58 AM CDT) Pathologist [facility] eGFR 75 >=60 mL/min/1. 73 m2 Comment: Interpretive Data Reference Interval Normal >/= 90 mL/min/1.73m2 Mildly decreased* 60 - 89 mL/min/1.73m2 Mildly to moderately decreased 45 - 59 mL/min/1.73m2 Moderately to severely decreased 30 - 44 mL/min/1.73m2 Severely decreased 15 - 29 mL/min/1.73m2 Kidney Failure < 15 mL/min/1.73m2 *Relative to young adult level Estimated glomerular filtration rate is determined by the 2020 CKD-EPI equation recommended by the National Kidney Foundation (A Unifying Approach to GFR Estimation: Recommendations of the NKF-ASK Task Force on Reassessing the Inclusion of Race in Diagnosing Kidney Disease, JASN 2020). The CKD-EPI equation should not be used for patients with unstable renal function and has not been validated in children and those over 70. Current interpretive data was last reviewed 2021. Blood 01/18/2025 8:58 AM CDT 01/18/2025 9:38 AM CDT us Jonas Rainey MD LAB BLOOD ORDERABLES Final Resu lt [facility] Department [place] [address] * Differential, auto (01/18/2025 8:58 AM CDT) Pathologist [facility] Neutrophil abs 4.47 1.50 - 6.50 K/cumm Imm gran abs 0.01 0.00 - 0.10 K/cumm [facility] Lymphocyte abs 1.34 0.80 - 3.30 K/cumm [facility] Monocyte abs 0.35 0.20 - 0.80 K/cumm [facility] Eosinophil abs 0.31 0.00 - 0.50 K/cumm [facility] Basophil abs 0.04 0.00 - 0.10 K/cumm [facility] Neutrophil pct 68.4 % [facility] Comment: Interpretive Data Percent cell count reference ranges are not reported, since discordance with absolute values may lead to misinterpretation of CBC data. Current Interpretive Data was last revised on 2017. Imm gran pct 0.2 % [facility] Comment: Interpretive Data Percent cell count reference ranges are not reported, since discordance with absolute values may lead to misinterpretation of CBC data. Current Interpretive Data was last revised on 2017. Lymphocyte pct 20.6 % [facility] Comment: Interpretive Data Percent cell count reference ranges are not reported, since discordance with absolute values may lead to misinterpretation of CBC data. Current Interpretive Data was last revised on 2017. Monocyte pct 5.4 % [facility] Comment: Interpretive Data Percent cell count reference ranges are not reported, since discordance with absolute values may lead to misinterpretation of CBC data. Current Interpretive Data was last revised on 2017. Eosinophil pct 4.8 % [facility] Comment: Interpretive Data Percent cell count reference ranges are not reported, since discordance with absolute values may lead to misinterpretation of CBC data. Current Interpretive Data was last revised on 2017. Basophil pct 0.6 % [facility] Comment: Interpretive Data Percent cell count reference ranges are not reported, since discordance with absolute values may lead to misinterpretation of CBC data. Current Interpretive Data was last revised on 2017. Blood 01/18/2025 8:58 AM CDT 01/18/2025 9:34 AM CDT us Jonas Rainey MD LAB BLOOD ORDERABLES Final Resu lt [facility] Department [place] [address] * Thyroid Function [place] (01/18/2025 8:58 AM CDT) TSH 1.21 0.30 - 4.20 mcIUnit/mL Blood 01/18/2025 8:58 AM CDT 01/18/2025 9:34 AM CDT Jonas Rainey MD LAB BLOOD ORDERABLES Final Resu lt [facility] Department [place] [address] * CBC with auto differential (01/18/2025 8:58 AM CDT) [facility] WBC 6.52 3.80 - 9.90 K/cumm Hgb 12.2 11.9 - 15.5 g/dL [facility] Hct 37.7 35.6 - 45.5 % [facility] Plt 274 150 - 400 K/cumm [facility] MPV 9.7 9.1 - 12.3 fL [facility] RBC 4.24 3.90 - 5.20 M/cumm [facility] MCV 88.9 81.3 - 96.4 fL [facility] MCH 28.8 27.1 - 33.3 pg [facility] MCHC 32.4 32.3 - 35.7 g/dL [facility] RDW CV 12.4 11.1 - 14.9 % [facility] RDW SD 40.6 35.7 - 48.1 fL [facility] NRBC abs 0.00 0.00 - 0.01 K/cumm [facility] Blood 01/18/2025 8:58 AM CDT 01/18/2025 9:34 AM CDT us Jonas Rainey MD LAB BLOOD ORDERABLES Final Resu lt Performing Organization Address [facility]/ZIP Co de Phone Number [facility] Department [place] [address] * (ABNORMAL) Gliadin antibody, IgG (01/18/2025 8:58 AM CDT) Pathologist [facility] Anti-gliadin, IgG 108.9(H) <=14.9 units/mL Comment: Interpretive data Negative: <15 units/mL Positive: > or equal to 15 units/mL Current interpretive data was last revised on 2016. Blood 01/18/2025 8:58 AM CDT 01/18/2025 9:34 AM CDT Jonas Rainey MD LAB BLOOD ORDERABLES Final Resu lt Performing Organization Address [facility] Co de Phone Number [facility] [place] [address] * Tissue transglutaminase IgA (TGG-IgA Ab) (01/18/2025 8:58 AM CDT) TTG ab, IgA 5.2 <=14.9 units/mL Comment: Interpretive data Negative: <15 units/mL Positive: > or equal to 15 units/mL Current interpretive data was last revised on 2016. Blood 01/18/2025 8:58 AM CDT 01/18/2025 9:34 AM CDT Jonas Rainey MD LAB BLOOD ORDERABLES Final Resu lt Performing Organization Address [facility] Co de Phone Number [facility] [place] [address] * (ABNORMAL) Vitamin D 25 hydroxy (01/18/2025 8:58 AM CDT) Vitamin D 25-OH 24(L) 30 - 80 ng/mL Blood 01/18/2025 8:58 AM CDT 01/18/2025 9:34 AM CDT Jonas Raieny MD LAB BLOOD ORDERABLES Final Resu lt Performing Organization Address City/[facility] Co de Phone Number [facility] [place] [address] * IgA (01/18/2025 8:58 AM CDT) Immunoglobulin A 163 70 - 400 mg/dL Blood 01/18/2025 8:58 AM CDT 01/18/2025 9:34 AM CDT us Jonas Rainey MD LAB BLOOD ORDERABLES Final Resu lt [facility] [place] [address] * Folate (01/18/2025 8:58 AM CDT) Folic acid 10.0 >=5.0 ng/mL Blood 01/18/2025 8:58 AM CDT 01/18/2025 9:34 AM CDT us Jonas Rainey MD LAB BLOOD ORDERABLES Final Resu lt Performing Organization Address [facility] [place] [address] * Ferritin (01/18/2025 8:58 AM CDT) Ferritin 54 13 - 150 ng/mL Blood 01/18/2025 8:58 AM CDT 01/18/2025 9:34 AM CDT us Jonas Rainey MD LAB BLOOD ORDERABLES Final Resu lt Performing Organization Address City/[facility]/ZIP Co de Phone Number [facility] [place] [address] * Vitamin B12 (01/18/2025 8:58 AM CDT) Vitamin B12 938 230 - 1,250 pg/mL Blood 01/18/2025 8:58 AM CDT 01/18/2025 9:34 AM CDT us Jonas Rainey MD LAB BLOOD ORDERABLES Final Resu lt [facility] [place] [address] * Comprehensive metabolic panel (01/18/2025 8:58 AM CDT) Sodium 138 135 - 145 mmol/L Potassium, pl 3.6 3.3 - 4.9 mmol/L [facility] Chloride 104 97 - 110 mmol/L [facility] CO2 26 22 - 32 mmol/L [facility] Anion gap 8 2 - 15 mmol/L [facility] BUN 9 6 - 25 mg/dL [facility] Creatinine 1.07 0.60 - 1.10 mg/dL [facility] Glucose 85 70 - 199 mg/dL [facility] Comment: Interpretive Data Fasting glucose >/= 126 mg/dl is diagnostic for diabetes. Fasting is defined as no caloric intake for at least 8 hours. Fasting glucose between 100 mg/dl to 125 mg/dl is diagnostic of prediabetes. In a patient with classic symptoms of hyperglycemia or hyperglycemic crisis, a random glucose >/= 200 mg/dl is diagnostic for diabetes. In the absence of unequivocal hyperglycemia, results should be confirmed by repeat testing. The classification and Diagnosis of Diabetes Diabetes Care 2021; 46: S19-S40. Current interpretive data was last revised 2022. Calcium 8.9 8.5 - 10.3 mg/dL [facility] Bilirubin, total 0.2 0.1 - 1.2 mg/dL [facility] Protein, pl 7.5 6.5 - 8.5 g/dL [facility] Albumin 3.9 3.5 - 5.0 g/dL [facility] Alk phos 74 40 - 130 Units/L [facility] ALT 15 7 - 45 Units/L [facility] AST 18 10 - 45 Units/L [facility] Blood 01/18/2025 8:58 AM CDT 01/18/2025 9:34 AM CDT us Jonas Rainey MD LAB BLOOD ORDERABLES Final Resu lt [facility] Department [place] [address] from Last 3 Months Insurance [place] Directives For more information, please contact: [phone] * Full Code (Latest Code Status on File) Date Activated Date Inactivated Comments 01/23/2025 2:07 PM 01/23/2025 8:58 PM Care Teams Rock Star Relationship Specialty Start Date End Date Jose Maria West Jr., PA [address] [place] [id number] PCP - General Family Medicine 12/28/24
--- OUTSIDE RECORDS SUMMARY | 2025-02-06 20:38 | XMS_ITS | Encounter Summary ---
Author Organization [facility] Address [address] [place] [address] Phone Care Team Providers Care Equities Trader Name Role Phone MARISA West Jr., Jose Maria Adams Primary Care Provide r Encounter Details Date Type Department Care Team (Late st Contact Info) Description 01/26/2025 Results Follow-Up 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
--- OUTSIDE RECORDS SUMMARY | 2025-02-06 20:38 | XMS_ITS | Encounter Summary ---
Author Organization [facility] Address [address] [place] [address] Phone Care Team Providers Care Boner Meat Name Role Phone MARISA West Jr., Jose Maria Adams Primary Care Provide r Encounter Details Date Type Department Care Team (Late st Contact Info) Description 01/19/2025 Results Follow-Up [facility] Medicine Gastroenterology [address] [facility] Advanced Medicine 12th [place] [address] [place] [address] Kimberly Chung LPN Thyroid Function [place], Vitamin D 25 hydroxy, IgA, Additional followed-up results: 9 Social History Tobacco Use Types Packs/Day Years [...] on file 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
--- OUTSIDE RECORDS SUMMARY | 2025-02-06 20:38 | XMS_ITS | Clinical Summary ---
Author Organization [facility] Jackie Vazquez Address [facility] [place] [address] Care Team Providers Care Sound Technician Name Role Phone Chintan Romo MD Primary Care Provider [phone] Allergies No known active allergies Medications ferrous [...] Encounters Date Type Department Care Team Description 01/23/2025 External Device Data [facility] ABSTRACTION Provider, Abstract 11/22/2024 External Device Data [facility] ABSTRACTION Provider, Abstract 11/21/2024 External Device Data [facility]STRACTION Provider, Abstract [...] Sign Reading Time Taken Comments Blood Pressure 108/69 09/28/2024 3:33 PM CDT Pulse 87 09/28/2024 3:33 PM CDT Temperature 36.7 C (98 F) 09/28/2024 3:33 PM CDT Respiratory Rate 15 09/28/2024 3:33 PM CDT Oxygen Saturation 97% 09/28/2024 3:33 PM CDT Inhaled Oxygen Concentration - - Weight 56.1 kg (123 lb 9.6 oz) 09/28/2024 3:33 P M CDT Height 162.6 cm (5' 4) 09/08/2023 10:28 AM CDT Body Mass Index 21.22 09/08/2023 10:28 AM CDT Plan of Treatment Upcoming Encounters Date Type Department Care Team (Late st Contact Info) Description 10/02/2025 10:15 AM CDT Office Visit [facility] Oncology and Hematology - [place] [address] [place] [address] [address] [place] [address] Luis Antonio Adame MD [address] [facility] [address] [place] [address] Health Maintenance Due Date Last Done Comments CHLAMYDIA SCREENING (ANNUAL) 11-24 YEARS 2013 HPV VACCINES (3 - 3-dose series) 02/29/2020 12/07/19, 07/01/2018 CERVICAL CANCER SCREENING 11/04/2023 HPV/Cotest (21-29) 11/04/2023 PAP SMEAR 11/04/2023 DTAP/TDAP/TD VACCINES (7 - T d or Tdap) 02/02/2024 02/01/2014, 12/01/2007, 05/22/2004, Additional history exists INFLUENZA VACCINE (#1) 2024 07/01/2018, 2013 HEPATITIS B VACCINES Completed 07/06/2003, 04/06/2003, 01/04/2003, Additional history exists Insurance [employer] BLUE ACCESS/TRUE BLUE PPO Care Teams Sound Technician Relationship Specialty Start Date End Date Chintan Romo MD [address] [facility] [address] [place] [address] PCP - General Family Practice 09/28/24
--- OUTSIDE RECORDS SUMMARY | 2025-02-06 20:38 | XMS_ITS | Clinical Summary ---
Author Organization [facility] Address [address] [place] [address] Care Team Providers Care Cp Bleacher Operator Name Role Phone Stephanie Castorena PA-C Primary Care Provider [phone] Allergies No known active allergies Social History [...] 5:21 PM CDT Height 162.6 cm (5' 4) 08/18/2021 5:21 PM CDT Body Mass Index 21.46 08/18/2021 5:21 PM CDT Plan of Treatment Upcoming Encounters Date Type Department Care Team (Late st Contact Info) Description 02/22/2025 8:40 AM CDT Office Visit [facility] Multispecialty Care - [address], [address] [place] [address] Santa Mahmood, ALEX [address] [address] Health Maintenance Due Date Last Done Comments Cervical Cancer Screening Pap Smear (Age 21 to 29) Every 3 Years 2002 Cervical Cancer Screening 2002 Annual Physical 2005 Meningococcal B Vaccine (1 of 2 - Standard) 2018 HPV Vaccines (3 - 3-dose series) 02/29/2020 12/07/2019, 07/01/2018 Hepatitis C 2020 DTaP, Tdap and Td Vaccines (7 - Td or Tdap) 02/02/2024 02/01/2014, 12/01/2007, 05/22/2004, Additional history exists PHQ-2 (Physician Telida) 05/10/2024 COVID-19 Vaccine ( season) 2025 Hepatitis B Vaccines Completed 07/06/2003, 07/06/2003, 04/06/2003, Additional history exists Pneumococcal Vaccine: Pediatrics (0 to 5 Years) and At-Risk Patients (6 to 49 Years) Aged Out 05/22/2004, 07/06/2003, 04/06/2003, Additional history exists No longer eligible based on patient's age to complete this topic Meningococcal Vaccine Completed 12/07/2019, 014 RSV Immunizations Under 20 Months Aged Out No longer eligible based on patient's age to complete this topic Insurance ALLIED B[place] [address] Care Teams Cp Bleacher Operator Relationship Specialty Start Date End Date Stephanie Castorena PA-C [address] [place] [address] PCP - General Physician [employer] [facility] 12/11/24
[2025-02-06 21:19] LABS: Alanine Aminotransferase 25 U/L (6-35); Albumin Level 4.3 g/dL (3.5-5.1); Alkaline Phosphatase 85 U/L (38-126); Anion Gap 13 mmol/L (4-12); Aspartate Amino Transferase 30 U/L (14-36); Bilirubin,Total 0.5 mg/dL (0.2-1.3); Blood Urea Nitrogen 10 mg/dL (7-17); Calcium 8.9 mg/dL (8.4-10.2); Carbon Dioxide 23 mmol/L (22-30); Chloride 103 mmol/L (98-107); Estimated CRCL calculation 79 ml/min; Estimated Glomerular Filt Rate > 60; Glucose 125 mg/dL (65-110); Potassium 2.7 mmol/L (3.4-5.0); Sodium 139 mmol/L (137-145); Total Protein 7.8 g/dL (6.3-8.2)
[2025-02-06] MEDS: KCL 20 MEQ/SW 100 ML 100 ML 50 MEQ IVPB (22:06)
[2025-02-06] MEDS: POTASSIUM CHLORIDE 20 MEQ PACKET (FOR LIQUID) 40 MEQ PO (22:07)
[2025-02-07] VITALS: PULSE 65; RESP 19; O2SAT 100
[2025-02-07 00:01] VITALS: BP 114/86; PULSE 62; RESP 17; O2SAT 99
[2025-02-07 00:37] VITALS: BP 123/81; PULSE 60; RESP 15; TEMP 36.5; O2SAT 96
== END 2025-02-07 00:38 | disposition home or self-care (01) ==
PROVIDERS: Emergency Provider Student in an Organized Health Care Education/Training Program; PCP Family Medicine
DX: T78.05XA Anaphylactic reaction due to tree nuts and seeds, initial encounter (principal)
CPT/HCPCS: 36415; 80053; 84703; 85025; 93005; 96361; 96365; 96366; 96372; 96375; 99284; A9270; J0166; J2405; J2919; J3480; J7120